=== PATIENT | male | born 1985 | race Native Hawaiian/Other Pacific Islander ===

== ENCOUNTER 2016-06-18 13:39 | Inpatient (IN) | payer OTHER ==
[2016-06-18] MEDS ORDERED: ZEMURON IV ONE ×2 (13:51→20:09)
[2016-06-18] MEDS ORDERED: KETALAR IV ONE ×2 (13:52→15:00)
[2016-06-18] MEDS ORDERED: ACTIDOSE SORBITOL ONE (13:58)
[2016-06-18] MEDS ORDERED: ACTIDOSE-AQUA ONE (13:58)
[2016-06-18] MEDS ORDERED: NACL 0.9% 1000 ML 1,000 ML IV ONE ×2 (14:42→18:50)
[2016-06-18] MEDS ORDERED: SUBLIMAZE IV ONE (14:42)
[2016-06-18 14:43] LABS: Urine Drugs of Abuse Note Disclamer
[2016-06-18 14:52] LABS: Basophils % (Auto) 0.8 % (0.0-1.8); Eosinophils % (Auto) 4.9 % (0.0-4.3); Hemoglobin 16.1 gm/dl (11.8-15.2); Mean Corpuscular HGB Conc 33 % (32-34); Mean Corpuscular Hemoglobin 29 pg (28-32); Mean Corpuscular Volume 89 fl (84-94); Red Blood Count 5.52 M/mm3 (3.65-5.03); Red Cell Distribution Width 14.5 % (13.2-15.2); White Blood Count 12.9 K/mm3 (4.5-11.0)
--- NOTE | 2016-06-18 14:53 | Emergency Department Report ---
ED General Adult HPI - General Chief complaint: Overdose Stated complaint: OVERDOSE Time Seen by Provider: 06/18/16 14:08 Source: EMS (verbal report received from EMS.ems notes not available at time of chart dictation), RN notes reviewed Mode of arrival: Stretcher Limitations: Altered Mental Status - History of Present Illness Initial comments: This is a 31-year-old male. He is previously unknown to me. He is brought to the hospital by EMS after overdose. As per verbal report from EMS, patient was found in the hallway, complaining of overdose on clonidine and Valium, possibly citalopram. EMS verbally reports that overdose happened approximately 45 minutes prior to arrival. The patient endorses suicidality. Initially upon arrival, the patient was somnolent, gurgling, did not appear to be protecting his airway. The patient was preoxygenated with 100% oxygen, received apical oxygenation, induced with ketamine, paralyzed with rocuronium , and intubated by myself with 1 attempt with no obvious complications or difficulty. An emergent orogastric tube was then placed by the nursing staff, and he was given 100 g of charcoal with sorbitol. Given concern for hemodynamic instability in the context of clonidine overdose, an emergent right-sided central line is placed by myself using ultrasound guidance with no complications, with one attempt. Nursing staff contact the [facility], who made the following recommendations: Rashard from posoin control states The medical telephone order dispatcher unaware if Left bundle branch block on EKG is preexisting and that a QRS of 132 is of concern. Per Rashard he states the medical telephone order dispatcher recommends to give pt 1 mEq/kg of bicarb IV Push to alkalinize. If the QRS of 132 is related to the Citalopram the QRS will narrow on monitor. If the QRS narrows, repeat bicarb 1 mEq/kg in 5-10 minutes. If QRS does not narrow, don't repeat bicarb dose. He states QT/QTc of 418/451 ms is not of concern unless greater than 500 ms. Pt needs serial EKGs every 2 hours. Assess for serotonin syndrome symptoms such as muscle rigidity and fever.. Pt needs baseline CPK to assess for rhabdomyolysis. Check hepatic and renal function baseline. If change in pt condition, repeat CPK, hepatic and renal function every 6-12 hours. Monitor electrolytes if EKG changes occur. Check pt tylenol level at baseline and 4 hours from baseline check. Read back and verified. Initialized on 06/18/16 15:10 - END OF NOTE -: unknown Severity scale (0 -10): 0 Consistency: other (per hpi) Improves with: other (per hpi) Worsens with: other (per hpi) Associated Symptoms: other (per hpi) - Related Data Allergies Allergy/AdvReac Type Severity Reaction Status Date / Time NSAIDS (Non-Steroidal AdvReac Unknown Verified 06/18/16 19:28 Anti-Inflamma ED Review of Systems ROS: Stated complaint: OVERDOSE Other details as noted in HPI Comment: Unobtainable due to pts medical conditions ED Past Medical Hx - Past Medical History Hx Psychiatric Treatment: Yes Additional medical history: previous suicide attempts - Social History Smoking Status: Never Smoker Substance Use Type: Alcohol ED Physical Exam - General Limitations: Altered Mental Status General appearance: obtunded, obese - ENT ENT exam: Present: normal exam, normal orophraynx - Neck Neck exam: Present: normal inspection. Absent: tenderness, meningismus - Respiratory Respiratory exam: Present: normal lung sounds bilaterally. Absent: respiratory distress, wheezes, rales, stridor - Cardiovascular Cardiovascular Exam: Present: regular rate, normal rhythm, normal heart sounds. Absent: bradycardia, tachycardia, irregular rhythm, systolic murmur, diastolic murmur, rubs, gallop - GI/Abdominal GI/Abdominal exam: Present: soft, normal bowel sounds. Absent: distended, tenderness, guarding, rebound, rigid, pulsatile mass - exam: Present: normal inspection - Extremities Exam Extremities exam: Present: normal inspection - Back Exam Back exam: Present: normal inspection - Neurological Exam Neurological exam: Present: altered - Psychiatric Psychiatric exam: Present: flat affect, suicidal ideation ED Course Vital Signs 06/18/16 06/18/16 06/18/16 13:50 13:54 14:42 Temperature Pulse Rate 78 69 Respiratory 24 16 Rate Blood Pressure 132/56 Blood Pressure 133/84 [Right] O2 Sat by Pulse 83 L 97 Oximetry 06/18/16 06/18/16 06/18/16 15:02 15:18 15:30 Temperature Pulse Rate 70 69 71 Respiratory 17 Rate Blood Pressure 117/74 Blood Pressure 113/74 [Right] O2 Sat by Pulse 100 98 98 Oximetry 06/18/16 06/18/16 06/18/16 15:31 15:45 16:00 Temperature 97.5 F L Pulse Rate 74 63 Respiratory 20 16 Rate Blood Pressure Blood Pressure 113/71 120/73 [Right] O2 Sat by Pulse 96 100 Oximetry 06/18/16 06/18/16 06/18/16 16:25 16:47 17:02 Temperature 100.5 F H Pulse Rate 67 Respiratory 16 Rate Blood Pressure Blood Pressure 113/68 [Right] O2 Sat by Pulse 98 60 L Oximetry 06/18/16 06/18/16 18:13 19:22 Temperature Pulse Rate 64 64 Respiratory 16 16 Rate Blood Pressure Blood Pressure 110/66 124/74 [Right] O2 Sat by Pulse 100 100 Oximetry - Reevaluation(s) Reevaluation #1: 06/18/16 16:19 Differential diagnosis: Respiratory failure, intracranial injury, cervical spine injury, suicidality, polysubstance overdose, mood disorder Assessment and plan: 31-year-old male with respiratory failure secondary to toxic encephalopathy, secondary to overdose, secondary to suicidality requiring intubation. He is placed on a 1013. An emergent central line is placed in the event that the patient develops hemodynamic instability from a severe clonidine overdose. Currently, the patient is not hemodynamically unstable. The toxicology recommendations are appreciated, repeat EKG is ordered after 150 mEq of sodium bicarbonate administration. Repeat Tylenol level was ordered. Case is discussed with the Hospital physician, Dr. Brannon, who accepts patient to his service. Case is discussed with the critical care physician, Dr. Ruiz, who authorizes placements to the ICU. Reevaluation #2: 06/18/16 17:08 CT scan of the brain and cervical spine negative. Rectal temperature 100.5. CK within normal limits. Compartments are soft. No clonus. Does not appear to be consistent with serotonin syndrome or NMS. I will rediscuss with [facility]. We will initiate cooling measures including ice packs to the groin and axilla. Acetaminophen will be held at this time. Given fever, altered mental status, we'll perform spinal tap to exclude meningitis. Reevaluation #3: 06/18/16 18:49 inr 1.53, will hold off on spinal tap for now will continue empiric antibiotic therapy case is rediscussed with Cristi at the [facility] [place] [facility]. Patient does not have clonus, hyperreflexia does not have elevated CPK, [facility] does not recommend initiation of bromocriptine at this time. They recommend symptomatic and supportive care, external cooling measures. 06/18/16 18:53 - Central Line Placement Right IJ Consent Obtained: emergent situation Time Out Performed: Yes Patient Placed on Monitor/Pulse Ox: Yes MD Prep: mask, gown, gloves Central Line Prep: Chlorhexidine scrub, sterile drapes applied Ultrasound Used for Placement: Yes Central Line Lumen Inserted: triple Bloods Obtained for Lab: Yes Central Line Position: good blood return Dressing Applied: Tegaderm Post Procedure X-Ray: tip of catheter in good p Patient Tolerated Procedure: well Complications: none - Intubation Time Out Performed: No (emergent) Sedative: Ketamine Paralytic: Rocuronium Laryngoscope: Amina Size: 4 ET Tube Size: 7.5 Tube Secured Location: teeth Tube Placement Confirmation: visualized tube passing t Patient Tolerated Procedure: well Intubation Complications: none Additional Comments: received received passive Oxygenation, [id number] ventilation, intubated without difficulty ED Medical Decision Making - Lab Data Result diagrams: 06/21/16 06:53 06/21/16 06:53 Vital Signs 06/18/16 06/18/16 06/18/16 13:50 13:54 14:42 Temperature Pulse Rate 78 69 Respiratory 24 16 Rate Blood Pressure 132/56 Blood Pressure 133/84 [Right] O2 Sat by Pulse 83 L 97 Oximetry 06/18/16 06/18/16 06/18/16 15:02 15:18 15:31 Temperature Pulse Rate 70 69 74 Respiratory 17 20 Rate Blood Pressure Blood Pressure 113/74 113/71 [Right] O2 Sat by Pulse 100 98 96 Oximetry 06/18/16 15:45 Temperature 97.5 F L Pulse Rate Respiratory Rate Blood Pressure Blood Pressure [Right] O2 Sat by Pulse Oximetry Labs 06/18/16 06/18/16 06/18/16 14:05 14:05 14:05 WBC 12.9 H RBC 5.52 H Hgb 16.1 H Hct 49.0 H MCV 89 MCH 29 MCHC 33 RDW 14.5 Plt Count 246 Lymph % (Auto) 20.5 Kerr % (Auto) 7.8 H Eos % (Auto) 4.9 H Baso % (Auto) 0.8 Lymph # 2.6 Kerr # 1.0 H Eos # 0.6 H Baso # 0.1 Seg Neutrophils % 66.0 Seg Neutrophils # 8.5 H POC ABG pH POC ABG pCO2 POC ABG pO2 POC ABG HCO3 POC ABG Total CO2 POC ABG O2 Sat POC ABG Base Excess FiO2 Sodium Potassium Chloride Carbon Dioxide Anion Gap BUN Creatinine Estimated GFR BUN/Creatinine Ratio Glucose Lactic Acid Calcium Magnesium Total Bilirubin AST ALT Alkaline Phosphatase Total Creatine Kinase Total Protein Albumin Albumin/Globulin Ratio TSH Urine Color Yellow Urine Turbidity Clear Urine pH 6.0 Ur Specific [place] 1.010 Urine Protein <15 mg/dl Urine Glucose (UA) Neg Urine Ketones Neg Urine Blood Neg Urine Nitrite Neg Urine Bilirubin Neg Urine Urobilinogen < 2.0 Ur Leukocyte Esterase Neg Urine WBC (Auto) 4.0 Urine RBC (Auto) 1.0 Urine Bacteria (Auto) 1+ Urine Mucus Few Salicylates Urine Opiates Screen Presumptive negative Urine Methadone Screen Presumptive negative Acetaminophen Ur Barbiturates Screen Presumptive negative Ur Phencyclidine Scrn Presumptive negative Ur Amphetamines Screen Presumptive negative U Benzodiazepines Scrn Presumptive positive Urine Cocaine Screen Presumptive negative U Marijuana (THC) Screen Presumptive negative Drugs of Abuse Note Disclamer Plasma/Serum Alcohol 06/18/16 06/18/16 06/18/16 14:05 14:05 14:05 WBC RBC Hgb Hct MCV MCH MCHC RDW Plt Count Lymph % (Auto) Kerr % (Auto) Eos % (Auto) Baso % (Auto) Lymph # Kerr # Eos # Baso # Seg Neutrophils % Seg Neutrophils # POC ABG pH POC ABG pCO2 POC ABG pO2 POC ABG HCO3 POC ABG Total CO2 POC ABG O2 Sat POC ABG Base Excess FiO2 Sodium 141 Potassium 3.1 L Chloride 104.7 Carbon Dioxide 17 L Anion Gap 22 BUN 4 L Creatinine 0.7 L Estimated GFR > 60 BUN/Creatinine Ratio 5.71 Glucose 140 H Lactic Acid 3.6 H* Calcium 7.8 L Magnesium 1.5 L Total Bilirubin 0.4 AST 62 H ALT 91 H Alkaline Phosphatase 115 Total Creatine Kinase Total Protein 5.9 L Albumin 3.2 L Albumin/Globulin Ratio 1.2 TSH 3.680 Urine Color Urine Turbidity Urine pH Ur Specific [place] Urine Protein Urine Glucose (UA) Urine Ketones Urine Blood Urine Nitrite Urine Bilirubin Urine Urobilinogen Ur Leukocyte Esterase Urine WBC (Auto) Urine RBC (Auto) Urine Bacteria (Auto) Urine Mucus Salicylates Urine Opiates Screen Urine Methadone Screen Acetaminophen Ur Barbiturates Screen Ur Phencyclidine Scrn Ur Amphetamines Screen U Benzodiazepines Scrn Urine Cocaine Screen U Marijuana (THC) Screen Drugs of Abuse Note Plasma/Serum Alcohol 06/18/16 06/18/16 06/18/16 14:05 14:05 14:05 WBC RBC Hgb Hct MCV MCH MCHC RDW Plt Count Lymph % (Auto) Kerr % (Auto) Eos % (Auto) Baso % (Auto) Lymph # Kerr # Eos # Baso # Seg Neutrophils % Seg Neutrophils # POC ABG pH POC ABG pCO2 POC ABG pO2 POC ABG HCO3 POC ABG Total CO2 POC ABG O2 Sat POC ABG Base Excess FiO2 Sodium Potassium Chloride Carbon Dioxide Anion Gap BUN Creatinine Estimated GFR BUN/Creatinine Ratio Glucose Lactic Acid Calcium Magnesium Total Bilirubin AST ALT Alkaline Phosphatase Total Creatine Kinase Total Protein Albumin Albumin/Globulin Ratio TSH Urine Color Urine Turbidity Urine pH Ur Specific [place] Urine Protein Urine Glucose (UA) Urine Ketones Urine Blood Urine Nitrite Urine Bilirubin Urine Urobilinogen Ur Leukocyte Esterase Urine WBC (Auto) Urine RBC (Auto) Urine Bacteria (Auto) Urine Mucus Salicylates < 0.3 L Urine Opiates Screen Urine Methadone Screen Acetaminophen < 15.0 Ur Barbiturates Screen Ur Phencyclidine Scrn Ur Amphetamines Screen U Benzodiazepines Scrn Urine Cocaine Screen U Marijuana (THC) Screen Drugs of Abuse Note Plasma/Serum Alcohol 0.13 H 06/18/16 06/18/16 14:05 15:18 WBC RBC Hgb Hct MCV MCH MCHC RDW Plt Count Lymph % (Auto) Kerr % (Auto) Eos % (Auto) Baso % (Auto) Lymph # Kerr # Eos # Baso # Seg Neutrophils % Seg Neutrophils # POC ABG pH 7.320 L POC ABG pCO2 47.9 H POC ABG pO2 149 H POC ABG HCO3 24.7 POC ABG Total CO2 26 POC ABG O2 Sat 99 POC ABG Base Excess -1 FiO2 60 Sodium Potassium Chloride Carbon Dioxide Anion Gap BUN Creatinine Estimated GFR BUN/Creatinine Ratio Glucose Lactic Acid Calcium Magnesium Total Bilirubin AST ALT Alkaline Phosphatase Total Creatine Kinase 25 L Total Protein Albumin Albumin/Globulin Ratio TSH Urine Color Urine Turbidity Urine pH Ur Specific [place] Urine Protein Urine Glucose (UA) Urine Ketones Urine Blood Urine Nitrite Urine Bilirubin Urine Urobilinogen Ur Leukocyte Esterase Urine WBC (Auto) Urine RBC (Auto) Urine Bacteria (Auto) Urine Mucus Salicylates Urine Opiates Screen Urine Methadone Screen Acetaminophen Ur Barbiturates Screen Ur Phencyclidine Scrn Ur Amphetamines Screen U Benzodiazepines Scrn Urine Cocaine Screen U Marijuana (THC) Screen Drugs of Abuse Note Plasma/Serum Alcohol - EKG Data When compared to previous EKG there are: previous EKG unavailable 06/18/16 16:21 normal sinus, 70 bpm, left axis deviation, left ventricular hypertrophy, QTC 451 ms, left bundle branch block, not morphologically consistent with STEMI, there is no prior EKG available for comparison. - Radiology Data Radiology results: report reviewed, image reviewed interpreted by me: Initial x-ray demonstrates bilateral lung atelectasis, endotracheal tube noted to be superior to the bilateral clavicles, the respiratory therapist was contacted and requested to advance endotracheal tube. Right-sided central line is noted, no obvious pneumothorax, appears to be in appropriate position. repeat ekg noted normal sinus 64 bpm, left axis Critical Care Time: Yes Critical care time in (mins) excluding proc time.: 60 Critical care attestation.: If time is entered above; I have spent that time in minutes in the direct care of this critically ill patient, excluding procedure time. Critical Care Time: Critical care time includes multiple bedside evaluations, interpretation of laboratory studies, radiology studies, time spent managing critically ill patient with respiratory failure secondary to overdose. This does not include procedure time. ED Disposition Clinical Impression: Suicidal ideation Overdose Qualifiers: Encounter type: initial encounter Respiratory failure Qualifiers: Chronicity: acute Respiratory failure complication: hypoxia Qualified Code(s): J96.01 - Acute respiratory failure with hypoxia Disposition: OP ADMITTED IP TO THIS HOSP Is pt being admited?: Yes Condition: Critical
[2016-06-18 14:56] LABS: Platelet Count 246 K/mm3 (140-440)
[2016-06-18 15:07] LABS: Alanine Aminotransferase 91 units/L (7-56); Albumin 3.2 g/dL (3.9-5); Albumin/Globulin Ratio 1.2 %; Alkaline Phosphatase 115 units/L (35-129); Anion Gap 22 mmol/L; BUN/Creatinine Ratio 5.71; Bilirubin,Total 0.4 mg/dL (0.1-1.2); Blood Urea Nitrogen 4 mg/dL (9-20); Calcium 7.8 mg/dL (8.4-10.2); Carbon Dioxide 17 mmol/L (22-30); Chloride 104.7 mmol/L (98-107); Glucose 140 mg/dL (75-100); Magnesium 1.5 mg/dL (1.7-2.3); Potassium 3.1 mmol/L (3.6-5.0); Sodium 141 mmol/L (137-145); Total Protein 5.9 g/dL (6.3-8.2)
[2016-06-18 15:11] LABS: Bacteria,Urine 1+ /HPF (Negative); Bilirubin,Urine NEG (Negative); Blood,Urine NEG (Negative); Ketones,Urine NEG (Negative); Leukocyte Esterase,Urine NEG (Negative); Mucus,Urine FEW /HPF; Nitrite,Urine NEG (Negative); Protein,Urine <15 mg/dL mg/dL (Negative); Urobilinogen,Urine < 2.0 mg/dL (<2.0)
[2016-06-18 15:37] LABS: ISTAT Base Excess -1; ISTAT HCO3 24.7; ISTAT PCO2 47.9 (35-45); ISTAT PO2 149 (80-105); ISTAT SO2 99; ISTAT TCO2 26
[2016-06-18] MEDS ORDERED: MAGNESIUM SULFATE 2GM/50ML 2 GM/50 ML BAG IV ONE (15:40)
[2016-06-18] MEDS ORDERED: VALIUM IV ONE (15:59)
[2016-06-18] MEDS: KCL 20MEQ/100ML 20 MEQ/100 ML BAG IV SCH ×2 (16:40→18:01)
--- NOTE | 2016-06-18 16:49 | Cat Scan Report ---
FINAL REPORT PROCEDURE: CT HEAD/BRAIN WO CON TECHNIQUE: Computerized tomography of the head was performed without contrast material. HISTORY: ams COMPARISON: No prior studies are available for comparison. FINDINGS: Brain: Brain density appears normal. No evidence of intracranial hemorrhage. No parenchymal hemorrhage, mass lesions or mass effect are seen. No abnormal extraxial fluid collects or masses are seen. Ventricles: Ventricles are normal size and are midline. Bone Windows: No evidence of skull fracture. Paranasal sinuses: There is mild mucosal thickening and a small amount of fluid in both maxillary sinuses. Small nodular density is seen medially in the right frontal sinus measuring 6.3 millimeters. Mastoid air cells: Clear Endotracheal tube and NG tube are partially visualized IMPRESSION: Negative unenhanced CT of the brain. Mild paranasal sinus disease as described. Endotracheal tube and NG tube in place.
[2016-06-18] MEDS ORDERED: SODIUM BICARBONATE IV ONE ×3 (16:52→17:00)
[2016-06-18] MEDS ORDERED: VASELINE LIP THERAPY TP PRN (16:52)
[2016-06-18] MEDS ORDERED: ARTIFICIAL TEARS OPHTH OINT OU PRN (16:52)
--- NOTE | 2016-06-18 16:58 | Cat Scan Report ---
FINAL REPORT PROCEDURE: CT cervical spine without contrast. TECHNIQUE: Computerized tomography of the cervical spine was performed from the skull base to T1 without contrast material. HISTORY: Altered mental status, possible neck injury. COMPARISON: No prior studies are available for comparison. FINDINGS: The cervical vertebrae have normal height and alignment. There are no fractures. There is no subluxation. The disc spaces appear adequate. The spinal canal is widely patent. The facet joints appear satisfactory. The neural foramina are widely patent. An endotracheal tube and orogastric tube are noted. The endotracheal tube just passes through the vocal cords. It should be advanced for more optimal positioning. IMPRESSION: No evidence of acute cervical spine injury. High positioning of the endotracheal tube.
--- NOTE | 2016-06-18 16:59 | XRay Report ---
FINAL REPORT PROCEDURE: XR CHEST 1V AP TECHNIQUE: Chest radiograph anteroposterior view. CPT 80204 HISTORY: ett placement COMPARISON: No prior studies are available for comparison. FINDINGS: NG tube is seen directed into the stomach. The distal end of the tube is not included on the film. Endotracheal tube visualized. The tip lies 5.5 centimeters superior to the thoracic inlet and needs to be reposition. Right jugular central venous line in place. The tip projects in the mid SVC. No evidence of pneumothorax. Patchy alveolar densities are present in both bases suggesting atelectasis. The heart is magnified due to projection, probably normal size.. Pulmonary vasculature not significantly distended. No pulmonary edema or pleural effusions are seen. No acute bony abnormalities are identified. IMPRESSION: Endotracheal tube lies 5.5 centimeters above the thoracic inlet and needs to be significantly reposition. NG tube and central venous line in place as described. Bibasilar atelectasis suspected. Lungs are hypoventilated..
[2016-06-18] MEDS ORDERED: fentaNYL DRIP Premix 2,000 MCG/100 ML BAG IV SCH (17:00)
[2016-06-18] MEDS ORDERED: ROCEPHIN/NS 2 GM/100 ML 2 GM/100 ML BAG IV ONE (17:05)
[2016-06-18] MEDS ORDERED: DECADRON IV STA (17:05)
[2016-06-18] MEDS ORDERED: VANCOMYCIN VIAL IV ONE (17:07)
[2016-06-18] MEDS ORDERED: XYLOCAINE 2%/ EPI 1:200,000 INFILTRATI ONE (17:38)
[2016-06-18] MEDS: SUBLIMAZE 2,000 MCG in NACL 0.9% 60 ML IV SCH ×2 (17:54→22:52)
[2016-06-18] MEDS ORDERED: VANCOMYCIN PHARMACY TO DOSE IV SCH (18:00)
[2016-06-18 18:06] LABS: INR 1.53 (0.87-1.13); Partial Thromboplastin Time 29.9 Sec. (24.2-36.6)
[2016-06-18] MEDS ORDERED: DECADRON ONE (18:06)
[2016-06-18 19:25] LABS: BUN/Creatinine Ratio 8.33; Blood Urea Nitrogen 5 mg/dL (9-20); Calcium 7.2 mg/dL (8.4-10.2); Carbon Dioxide 26 mmol/L (22-30); Chloride 104.9 mmol/L (98-107); Glucose 164 mg/dL (75-100); Sodium 144 mmol/L (137-145)
[2016-06-18 19:31] LABS: Anion Gap 17 mmol/L
[2016-06-18] MEDS ORDERED: ACTIDOSE-AQUA PO ONE (19:59)
[2016-06-18] MEDS ORDERED: KETALAR ONE (20:09)
[2016-06-18] MEDS ORDERED: MILK OF MAGNESIA PO PRN (21:34)
[2016-06-18] MEDS ORDERED: DULCOLAX PR PRN (21:34)
[2016-06-18] MEDS ORDERED: ZOFRAN IV PRN (21:34)
[2016-06-18] MEDS ORDERED: PERCOCET 5/325 PO PRN (21:34)
--- NOTE | 2016-06-18 21:34 | History and Physical Report ---
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 History of present illness: This is a 31-year-old male brought to the hospital by EMS after overdose. As per verbal report from EMS, patient was found in the hallway, complaining of overdose on clonidine and Valium, possibly citalopram. EMS verbally reports that overdose happened approximately 45 minutes prior to arrival. The patient endorses suicidality. Initially upon arrival, the patient was somnolent, gurgling, did not appear to be protecting his airway. The patient was preoxygenated with 100% oxygen, received apical oxygenation, induced with ketamine, paralyzed with rocuronium and intubated by Dr Arteaga with 1 attempt with no obvious complications or difficulty. An emergent orogastric tube was then placed by the nursing staff, and he was given 100 g of charcoal with sorbitol. Given concern for hemodynamic instability in the context of clonidine overdose, an emergent right-sided central line wAS placed using ultrasound guidance with no complications, with one attempt. Nursing staff contact the [place] [facility], who made the following recommendations: Rashard from posoin control states The medical control officer manager unaware if Left bundle branch block on EKG is preexisting and that a QRS of 132 is of concern. Per Rashard he states the medical control officer manager recommends to give pt 1 mEq/kg of bicarb IV Push to alkalinize. If the QRS of 132 is related to the Citalopram the QRS will narrow on monitor. If the QRS narrows, repeat bicarb 1 mEq/kg in 5-10 minutes. If QRS does not narrow, don't repeat bicarb dose. He states QT/QTc of 418/451 ms is not of concern unless greater than 500 ms. Pt needs serial EKGs every 2 hours. Assess for serotonin syndrome symptoms such as muscle rigidity and fever.. Pt needs baseline CPK to assess for rhabdomyolysis. Check hepatic and renal function baseline. If change in pt condition, repeat CPK, hepatic and renal function every 6-12 hours. Monitor electrolytes if EKG changes occur. Check pt tylenol level at baseline and 4 hours from baseline check. Read back and verified. Initialized on 06/18/16 15:10 - END OF NOTE Past History Past Medical History: hypertension, other (dEPRESSION) Past Surgical History: No surgical history Family history: hypertension Medications and Allergies Allergies Allergy/AdvReac Type Severity Reaction Status Date / Time NSAIDS (Non-Steroidal AdvReac Unknown Verified 06/18/16 19:28 Anti-Inflamma Active Meds: Active Medications Fentanyl 2,000 mcg/ Sodium (Chloride) 100 mls @ 7.25 mls/hr IV TITR ROBBY; 1 MCG/ KG/HR PRN Reason: Protocol Last Admin: 06/18/16 17:54 Dose: 7.25 mls/hr Vancomycin HCl 2,000 mg/ (Sodium Chloride) 500 mls @ 333.333 mls/hr IV Q8H ROBBY Vancomycin HCl (Vancomycin Pharmacy To Dose) 1 each IV PKCONSULT ROBBY PRN Reason: Protocol Review of Systems ROS unobtainable: due to endotracheal tube Constitutional: weight loss, weight gain Exam - Physical Exam Narrative exam: Patient intubated - Constitutional Vitals: Temp Pulse Resp BP Pulse Ox 100.5 F H 64 16 108/75 98 06/18/16 17:02 06/18/16 20:27 06/18/16 19:22 06/18/16 20:27 06/18/16 20:27 General appearance: Present: mild distress, well-nourished - EENT Eyes: Present: PERRL ENT: clear oral mucosa - Neck Neck: Present: supple, normal ROM - Respiratory Respiratory effort: normal Respiratory: bilateral: CTA - Cardiovascular Heart rate: 80 Rhythm: regular Heart Sounds: Present: S1 & S2. Absent: rub, click - Extremities Extremities: no ischemia, pulses symmetrical, No edema Peripheral Pulses: within normal limits - Abdominal General gastrointestinal: Present: soft, non-tender, non-distended, normal bowel sounds Male genitourinary: Present: normal - Rectal Rectal Exam: deferred - Integumentary Integumentary: Present: clear, warm, dry - Musculoskeletal Musculoskeletal: gait normal, strength equal bilaterally - Psychiatric Psychiatric: other (Sedated) - Neurologic Neurologic: moves all extremities, other (Sedated) Results - Labs CBC & Chem 7: 06/19/16 03:40 06/19/16 03:40 Labs: Laboratory Last Values WBC 12.9 K/mm3 (4.5-11.0) H 06/18/16 14:05 RBC 5.52 M/mm3 (3.65-5.03) H 06/18/16 14:05 Hgb 16.1 gm/dl (11.8-15.2) H 06/18/16 14:05 Hct 49.0 % (35.5-45.6) H 06/18/16 14:05 MCV 89 fl (84-94) 06/18/16 14:05 MCH 29 pg (28-32) 06/18/16 14:05 MCHC 33 % (32-34) 06/18/16 14:05 RDW 14.5 % (13.2-15.2) 06/18/16 14:05 Plt Count 246 K/mm3 (140-440) 06/18/16 14:05 Lymph % (Auto) 20.5 % (13.4-35.0) 06/18/16 14:05 [place] % (Auto) 7.8 % (0.0-7.3) H 06/18/16 14:05 Eos % (Auto) 4.9 % (0.0-4.3) H 06/18/16 14:05 Baso % (Auto) 0.8 % (0.0-1.8) 06/18/16 14:05 Lymph # 2.6 K/mm3 (1.2-5.4) 06/18/16 14:05 [place] # 1.0 K/mm3 (0.0-0.8) H 06/18/16 14:05 Eos # 0.6 K/mm3 (0.0-0.4) H 06/18/16 14:05 Baso # 0.1 K/mm3 (0.0-0.1) 06/18/16 14:05 Seg Neutrophils % 66.0 % (40.0-70.0) 06/18/16 14:05 Seg Neutrophils # 8.5 K/mm3 (1.8-7.7) H 06/18/16 14:05 PT 18.4 Sec. (12.2-14.9) H 06/18/16 17:05 INR 1.53 (0.87-1.13) H 06/18/16 17:05 APTT 29.9 Sec. (24.2-36.6) 06/18/16 17:05 POC ABG pH 7.320 (7.35-7.45) L 06/18/16 15:18 POC ABG pCO2 47.9 (35-45) H 06/18/16 15:18 POC ABG pO2 149 (80-105) H 06/18/16 15:18 POC ABG HCO3 24.7 06/18/16 15:18 POC ABG Total CO2 26 06/18/16 15:18 POC ABG O2 Sat 99 06/18/16 15:18 POC ABG Base Excess -1 06/18/16 15:18 FiO2 60 % 06/18/16 15:18 Sodium 144 mmol/L (137-145) 06/18/16 18:58 Potassium 4.0 mmol/L (3.6-5.0) D 06/18/16 18:58 Chloride 104.9 mmol/L (98-107) 06/18/16 18:58 Carbon Dioxide 26 mmol/L (22-30) D 06/18/16 18:58 Anion Gap 17 mmol/L 06/18/16 18:58 BUN 5 mg/dL (9-20) L 06/18/16 18:58 Creatinine 0.6 mg/dL (0.8-1.5) L 06/18/16 18:58 Estimated GFR > 60 ml/min 06/18/16 18:58 BUN/Creatinine Ratio 8.33 % 06/18/16 18:58 Glucose 164 mg/dL (75-100) H 06/18/16 18:58 Lactic Acid 2.9 mmol/L (0.7-2.0) H* 06/18/16 16:56 Calcium 7.2 mg/dL (8.4-10.2) L 06/18/16 18:58 Magnesium 1.5 mg/dL (1.7-2.3) L 06/18/16 14:05 Total Bilirubin 0.4 mg/dL (0.1-1.2) 06/18/16 14:05 AST 62 units/L (5-40) H 06/18/16 14:05 ALT 91 units/L (7-56) H 06/18/16 14:05 Alkaline Phosphatase 115 units/L (35-129) 06/18/16 14:05 Total Creatine Kinase 25 units/L (55-170) L 06/18/16 14:05 Total Protein 5.9 g/dL (6.3-8.2) L 06/18/16 14:05 Albumin 3.2 g/dL (3.9-5) L 06/18/16 14:05 Albumin/Globulin Ratio 1.2 % 06/18/16 14:05 TSH 3.680 mlU/mL (0.270-4.200) 06/18/16 14:05 Urine Color Yellow (Yellow) 06/18/16 14:05 Urine Turbidity Clear (Clear) 06/18/16 14:05 Urine pH 6.0 (5.0-7.0) 06/18/16 14:05 Ur Specific [place] 1.010 (1.003-1.030) 06/18/16 14:05 Urine Protein <15 mg/dl mg/dL (Negative) 06/18/16 14:05 Urine Glucose (UA) Neg mg/dL (Negative) 06/18/16 14:05 Urine Ketones Neg mg/dL (Negative) 06/18/16 14:05 Urine Blood Neg (Negative) 06/18/16 14:05 Urine Nitrite Neg (Negative) 06/18/16 14:05 Urine Bilirubin Neg (Negative) 06/18/16 14:05 Urine Urobilinogen < 2.0 mg/dL (<2.0) 06/18/16 14:05 Ur Leukocyte Esterase Neg (Negative) 06/18/16 14:05 Urine WBC (Auto) 4.0 /HPF (0.0-6.0) 06/18/16 14:05 Urine RBC (Auto) 1.0 /HPF (0.0-6.0) 06/18/16 14:05 Urine Bacteria (Auto) 1+ /HPF (Negative) 06/18/16 14:05 Urine Mucus Few /HPF 06/18/16 14:05 Salicylates < 0.3 mg/dL (2.8-20.0) L 06/18/16 14:05 Urine Opiates Screen Presumptive negative 06/18/16 14:05 Urine Methadone Screen Presumptive negative 06/18/16 14:05 Acetaminophen < 15.0 ug/mL (10.0-30.0) 06/18/16 16:56 Ur Barbiturates Screen Presumptive negative 06/18/16 14:05 Ur Phencyclidine Scrn Presumptive negative 06/18/16 14:05 Ur Amphetamines Screen Presumptive negative 06/18/16 14:05 U Benzodiazepines Scrn Presumptive positive 06/18/16 14:05 Urine Cocaine Screen Presumptive negative 06/18/16 14:05 U Marijuana (THC) Screen Presumptive negative 06/18/16 14:05 Drugs of Abuse Note Disclamer 06/18/16 14:05 Plasma/Serum Alcohol 0.13 gm% (0-0.07) H 06/18/16 14:05 - Imaging and Cardiology EKG: report reviewed (C Spine CT neg) Chest x-ray: report reviewed CT Scan - head: report reviewed (NAF except sinus disease) Assessment and Plan Advance Directives: Yes (Full code) VTE prophylaxis?: Chemical - Patient Problems (1) Overdose Current Visit: Yes Status: Acute Qualifiers: Encounter type: initial encounter Injury intent: I Plan to address problem: Iv fluids and BP support if necessary (2) Respiratory failure Current Visit: Yes Status: Acute Qualifiers: Chronicity: acute Respiratory failure complication: hypoxia Qualified Code(s): J96.01 - Acute respiratory failure with hypoxia Plan to address problem: Cont Vent support for now (3) Hypokalemia Current Visit: Yes Status: Acute Plan to address problem: Supplemented (4) Suicidal overdose Current Visit: Yes Status: Acute Qualifiers: Encounter type: initial encounter Qualified Code(s): T50.902A - Poisoning by unspecified drugs, medicaments and biological substances, intentional self- harm, initial encounter Plan to address problem: consult requested (5) DVT prophylaxis Current Visit: Yes Status: Acute Plan to address problem: on lovenox Critical care statement
[2016-06-18] MEDS: D5NS 1,000 ML IV SCH (22:30)
[2016-06-18] MEDS: VANCOMYCIN VIAL 2,000 MG in NACL 0.9% 500 ML 500 ML IV SCH (22:54)
[2016-06-18] MEDS: KCL 10MEQ/100ML 10 MEQ/100 ML BAG IV SCH ×2 (22:55→23:55)
[2016-06-19] MEDS: KCL 10MEQ/100ML 10 MEQ/100 ML BAG IV SCH ×2 (00:55→01:20)
[2016-06-19] MEDS: SUBLIMAZE 2,000 MCG in NACL 0.9% 60 ML IV SCH (03:51)
[2016-06-19] MEDS: VANCOMYCIN VIAL 2,000 MG in NACL 0.9% 500 ML 500 ML IV SCH (03:53)
[2016-06-19 04:13] LABS: ISTAT Base Excess 0; ISTAT HCO3 24.6; ISTAT PCO2 37.8 (35-45); ISTAT PH 7.422 (7.35-7.45); ISTAT PO2 110 (80-105); ISTAT SO2 98; ISTAT TCO2 26
[2016-06-19 04:38] LABS: Alanine Aminotransferase 72 units/L (7-56); Albumin 3.2 g/dL (3.9-5); Albumin/Globulin Ratio 1.3 %; Alkaline Phosphatase 114 units/L (35-129); Anion Gap 18 mmol/L; BUN/Creatinine Ratio 7.14; Bilirubin,Total 0.6 mg/dL (0.1-1.2); Blood Urea Nitrogen 5 mg/dL (9-20); Calcium 7.5 mg/dL (8.4-10.2); Carbon Dioxide 24 mmol/L (22-30); Chloride 105.6 mmol/L (98-107); Glucose 189 mg/dL (75-100); Potassium 4.4 mmol/L (3.6-5.0); Sodium 143 mmol/L (137-145); Total Protein 5.7 g/dL (6.3-8.2)
[2016-06-19 04:41] LABS: Hematocrit 45.4 % (35.5-45.6); Hemoglobin 14.9 gm/dl (11.8-15.2); Mean Corpuscular HGB Conc 33 % (32-34); Mean Corpuscular Hemoglobin 29 pg (28-32); Mean Corpuscular Volume 88 fl (84-94); Platelet Count 210 K/mm3 (140-440); Red Blood Count 5.14 M/mm3 (3.65-5.03); White Blood Count 11.6 K/mm3 (4.5-11.0)
[2016-06-19 07:24] LABS: Basophils % (Manual) 0 % (0.0-1.8); Blastocytes % (Manual) 0 %; Diff Status Complete; Eosinophils % (Manual) 0 % (0.0-4.3); RBC Morphology Normal
[2016-06-19] MEDS: TYLENOL PO PRN ×2 (07:44→12:24)
[2016-06-19] MEDS: PEPCID IV SCH ×2 (09:56→21:15)
[2016-06-19] MEDS ORDERED: fentaNYL DRIP Premix 2,000 MCG/100 ML BAG IV SCH (10:00)
[2016-06-19] MEDS: D5NS 1,000 ML IV SCH (10:03)
--- NOTE | 2016-06-19 11:26 | Progress Note ---
Assessment and Plan Assessment and plan: 1. Acute hypoxic respiratory failure. Etiology secondary to toxic metabolic encephalopathy from drug overdose. Patient currently is intubated on a fentanyl drip. Patient has had hemodynamic stability and remained normotensive even though clonidine was reported as a drug use and overdose. Patient is to maintain on a ventilator until mental status improves and back to baseline. Pulmonary has been consult and will evaluate the patient. Waiting ventilator per protocol. 2. Toxic metabolic encephalopathy. Etiology secondary to drug overdose. Continue supportive care. 3. Drug overdose. Patient took clonidine, Valium and Celexa. Patient with hemodynamic stability and no evidence of hypotension. Patient had some widening of the QRS and received bicarbonate IV. Tracing appears stable on the monitor currently. Continue to observe on telemetry. Check EKG. Consider cardiology consultation. Hepatic and renal function appear to be stable. Continue to check CPK for rhabdomyolysis. No evidence of serotonin syndrome except for fever. No signs of muscle rigidity. 4. Suicide attempt. Patient has been placed on 1013. Patient will have psychiatric evaluation when more stable. 5. Fever. This may represent early signs of serotonin syndrome versus sepsis. No signs of any infectious process at present. Continue to monitor temperature curve. 6. Hypertension. Patient actually slightly hypotensive at present. History Interval history: This is a 31-year-old male. He is previously unknown to me. He is brought to the hospital by EMS after overdose. As per report from EMS, patient was found in the hallway, complaining of overdose on clonidine and Valium, possibly citalopram. EMS verbally reports that overdose happened approximately 45 minutes prior to arrival. The patient endorses suicidality. Patient is currently intubated and sedated. Mother is at the bedside. All questions answered. Hospitalist Physical - Constitutional Vitals: Temp Pulse Resp BP Pulse Ox 103.1 F H 55 L 16 114/71 97 06/19/16 08:00 06/19/16 11:00 06/19/16 11:00 06/19/16 11:00 06/19/16 11:00 General appearance: Present: no acute distress, well-nourished - EENT Eyes: Present: PERRL, EOM intact ENT: hearing intact, clear oral mucosa, dentition normal - Neck Neck: Present: supple, normal ROM - Respiratory Respiratory effort: normal Respiratory: bilateral: diminished, rhonchi - Cardiovascular Rhythm: regular Heart Sounds: Present: S1 & S2. Absent: gallop, rub - Extremities Extremities: no ischemia, No edema, Full ROM - Abdominal General gastrointestinal: soft, non-tender, non-distended, normal bowel sounds - Integumentary Integumentary: Present: clear, warm, dry - Neurologic Neurologic: CNII-XII intact, moves all extremities Results - Labs CBC & Chem 7: 06/19/16 03:40 06/19/16 03:40 Labs: Laboratory Last Values WBC 11.6 K/mm3 (4.5-11.0) H 06/19/16 03:40 RBC 5.14 M/mm3 (3.65-5.03) H 06/19/16 03:40 Hgb 14.9 gm/dl (11.8-15.2) 06/19/16 03:40 Hct 45.4 % (35.5-45.6) 06/19/16 03:40 MCV 88 fl (84-94) 06/19/16 03:40 MCH 29 pg (28-32) 06/19/16 03:40 MCHC 33 % (32-34) 06/19/16 03:40 RDW 14.0 % (13.2-15.2) 06/19/16 03:40 Plt Count 210 K/mm3 (140-440) 06/19/16 03:40 Lymph % (Auto) 20.5 % (13.4-35.0) 06/18/16 14:05 [place] % (Auto) 7.8 % (0.0-7.3) H 06/18/16 14:05 Eos % (Auto) 4.9 % (0.0-4.3) H 06/18/16 14:05 Baso % (Auto) 0.8 % (0.0-1.8) 06/18/16 14:05 Lymph # 2.6 K/mm3 (1.2-5.4) 06/18/16 14:05 [place] # 1.0 K/mm3 (0.0-0.8) H 06/18/16 14:05 Eos # 0.6 K/mm3 (0.0-0.4) H 06/18/16 14:05 Baso # 0.1 K/mm3 (0.0-0.1) 06/18/16 14:05 Add Manual Diff Complete 06/19/16 03:40 Total Counted 100 06/19/16 03:40 Seg Neutrophils % Lithostripper 06/19/16 03:40 Seg Neuts % (Manual) 92.0 % (40.0-70.0) H 06/19/16 03:40 Band Neutrophils % 0 % 06/19/16 03:40 Lymphocytes % (Manual) 5.0 % (13.4-35.0) L 06/19/16 03:40 Reactive Lymphs % (Man) 0 % 06/19/16 03:40 Monocytes % (Manual) 3.0 % (0.0-7.3) 06/19/16 03:40 Eosinophils % (Manual) 0 % (0.0-4.3) 06/19/16 03:40 Basophils % (Manual) 0 % (0.0-1.8) 06/19/16 03:40 Metamyelocytes % 0 % 06/19/16 03:40 Myelocytes % 0 % 06/19/16 03:40 Promyelocytes % 0 % 06/19/16 03:40 Blast Cells % 0 % 06/19/16 03:40 Nucleated RBC % Not Reportable 06/19/16 03:40 Seg Neutrophils # 8.5 K/mm3 (1.8-7.7) H 06/18/16 14:05 Seg Neutrophils # Man 10.7 K/mm3 (1.8-7.7) H 06/19/16 03:40 Band Neutrophils # 0.0 K/mm3 06/19/16 03:40 Lymphocytes # (Manual) 0.6 K/mm3 (1.2-5.4) L 06/19/16 03:40 Abs React Lymphs (Man) 0.0 K/mm3 06/19/16 03:40 Monocytes # (Manual) 0.3 K/mm3 (0.0-0.8) 06/19/16 03:40 Eosinophils # (Manual) 0.0 K/mm3 (0.0-0.4) 06/19/16 03:40 Basophils # (Manual) 0.0 K/mm3 (0.0-0.1) 06/19/16 03:40 Metamyelocytes # 0.0 K/mm3 06/19/16 03:40 Myelocytes # 0.0 K/mm3 06/19/16 03:40 Promyelocytes # 0.0 K/mm3 06/19/16 03:40 Blast Cells # 0.0 K/mm3 06/19/16 03:40 WBC Morphology Not Reportable 06/19/16 03:40 Hypersegmented Neuts Not Reportable 06/19/16 03:40 Hyposegmented Neuts Not Reportable 06/19/16 03:40 Hypogranular Neuts Not Reportable 06/19/16 03:40 Smudge Cells Not Reportable 06/19/16 03:40 Toxic Granulation Not Reportable 06/19/16 03:40 Toxic Vacuolation Not Reportable 06/19/16 03:40 Dohle Bodies Not Reportable 06/19/16 03:40 Pelger-Huet Anomaly Not Reportable 06/19/16 03:40 Sam Rods Not Reportable 06/19/16 03:40 Platelet Estimate Appears normal 06/19/16 03:40 Clumped Platelets Not Reportable 06/19/16 03:40 Plt Clumps, EDTA Not Reportable 06/19/16 03:40 Large Platelets Not Reportable 06/19/16 03:40 Giant Platelets Not Reportable 06/19/16 03:40 Platelet Satelliting Not Reportable 06/19/16 03:40 Plt Morphology Comment Not Reportable 06/19/16 03:40 RBC Morphology Normal 06/19/16 03:40 Dimorphic RBCs Not Reportable 06/19/16 03:40 Polychromasia Not Reportable 06/19/16 03:40 Hypochromasia Not Reportable 06/19/16 03:40 Poikilocytosis Not Reportable 06/19/16 03:40 Anisocytosis Not Reportable 06/19/16 03:40 Microcytosis Not Reportable 06/19/16 03:40 Macrocytosis Not Reportable 06/19/16 03:40 Spherocytes Not Reportable 06/19/16 03:40 Pappenheimer Bodies Not Reportable 06/19/16 03:40 Sickle Cells Not Reportable 06/19/16 03:40 Target Cells Not Reportable 06/19/16 03:40 Tear Drop Cells Not Reportable 06/19/16 03:40 Ovalocytes Not Reportable 06/19/16 03:40 Helmet Cells Not Reportable 06/19/16 03:40 [place] Bodies Not Reportable 06/19/16 03:40 [place] Rings Not Reportable 06/19/16 03:40 [place] Cells Not Reportable 06/19/16 03:40 Bite Cells Not Reportable 06/19/16 03:40 Crenated Cell Not Reportable 06/19/16 03:40 Elliptocytes Not Reportable 06/19/16 03:40 Acanthocytes (Spur) Not Reportable 06/19/16 03:40 Rouleaux Not Reportable 06/19/16 03:40 Hemoglobin C Crystals Not Reportable 06/19/16 03:40 Schistocytes Not Reportable 06/19/16 03:40 Malaria parasites Not Reportable 06/19/16 03:40 Jai Bodies Not Reportable 06/19/16 03:40 Hem Pathologist Commnt No 06/19/16 03:40 PT 18.4 Sec. (12.2-14.9) H 06/18/16 17:05 INR 1.53 (0.87-1.13) H 06/18/16 17:05 APTT 29.9 Sec. (24.2-36.6) 06/18/16 17:05 POC ABG pH 7.422 (7.35-7.45) 06/19/16 03:58 POC ABG pCO2 37.8 (35-45) 06/19/16 03:58 POC ABG pO2 110 (80-105) H 06/19/16 03:58 POC ABG HCO3 24.6 06/19/16 03:58 POC ABG Total CO2 26 06/19/16 03:58 POC ABG O2 Sat 98 06/19/16 03:58 POC ABG Base Excess 0 06/19/16 03:58 FiO2 40 % 06/19/16 03:58 Sodium 143 mmol/L (137-145) 06/19/16 03:40 Potassium 4.4 mmol/L (3.6-5.0) 06/19/16 03:40 Chloride 105.6 mmol/L (98-107) 06/19/16 03:40 Carbon Dioxide 24 mmol/L (22-30) 06/19/16 03:40 Anion Gap 18 mmol/L 06/19/16 03:40 BUN 5 mg/dL (9-20) L 06/19/16 03:40 Creatinine 0.7 mg/dL (0.8-1.5) L 06/19/16 03:40 Estimated GFR > 60 ml/min 06/19/16 03:40 BUN/Creatinine Ratio 7.14 % 06/19/16 03:40 Glucose 189 mg/dL (75-100) H 06/19/16 03:40 Lactic Acid 2.9 mmol/L (0.7-2.0) H* 06/18/16 16:56 Calcium 7.5 mg/dL (8.4-10.2) L 06/19/16 03:40 Magnesium 1.5 mg/dL (1.7-2.3) L 06/18/16 14:05 Total Bilirubin 0.6 mg/dL (0.1-1.2) 06/19/16 03:40 AST 30 units/L (5-40) 06/19/16 03:40 ALT 72 units/L (7-56) H 06/19/16 03:40 Alkaline Phosphatase 114 units/L (35-129) 06/19/16 03:40 Total Creatine Kinase 25 units/L (55-170) L 06/18/16 14:05 Total Protein 5.7 g/dL (6.3-8.2) L 06/19/16 03:40 Albumin 3.2 g/dL (3.9-5) L 06/19/16 03:40 Albumin/Globulin Ratio 1.3 % 06/19/16 03:40 TSH 3.680 mlU/mL (0.270-4.200) 06/18/16 14:05 Urine Color Yellow (Yellow) 06/18/16 14:05 Urine Turbidity Clear (Clear) 06/18/16 14:05 Urine pH 6.0 (5.0-7.0) 06/18/16 14:05 Ur Specific [place] 1.010 (1.003-1.030) 06/18/16 14:05 Urine Protein <15 mg/dl mg/dL (Negative) 06/18/16 14:05 Urine Glucose (UA) Neg mg/dL (Negative) 06/18/16 14:05 Urine Ketones Neg mg/dL (Negative) 06/18/16 14:05 Urine Blood Neg (Negative) 06/18/16 14:05 Urine Nitrite Neg (Negative) 06/18/16 14:05 Urine Bilirubin Neg (Negative) 06/18/16 14:05 Urine Urobilinogen < 2.0 mg/dL (<2.0) 06/18/16 14:05 Ur Leukocyte Esterase Neg (Negative) 06/18/16 14:05 Urine WBC (Auto) 4.0 /HPF (0.0-6.0) 06/18/16 14:05 Urine RBC (Auto) 1.0 /HPF (0.0-6.0) 06/18/16 14:05 Urine Bacteria (Auto) 1+ /HPF (Negative) 06/18/16 14:05 Urine Mucus Few /HPF 06/18/16 14:05 Salicylates < 0.3 mg/dL (2.8-20.0) L 06/18/16 14:05 Urine Opiates Screen Presumptive negative 06/18/16 14:05 Urine Methadone Screen Presumptive negative 06/18/16 14:05 Acetaminophen < 15.0 ug/mL (10.0-30.0) 06/18/16 16:56 Ur Barbiturates Screen Presumptive negative 06/18/16 14:05 Ur Phencyclidine Scrn Presumptive negative 06/18/16 14:05 Ur Amphetamines Screen Presumptive negative 06/18/16 14:05 U Benzodiazepines Scrn Presumptive positive 06/18/16 14:05 Urine Cocaine Screen Presumptive negative 06/18/16 14:05 U Marijuana (THC) Screen Presumptive negative 06/18/16 14:05 Drugs of Abuse Note Disclamer 06/18/16 14:05 Plasma/Serum Alcohol 0.13 gm% (0-0.07) H 06/18/16 14:05
--- NOTE | 2016-06-19 11:37 | Consultation ---
History of Present Illness Consult date: 06/19/16 Requesting physician: GRACIA ALMODOVAR Reason for consult: other (Drug OD; Acute Respiratory Failure) History of present illness: PULMONARY CONSULT NOTE (Full note dictated # [id number]) please see dictated notes for full details Past History Past Medical History: hypertension, other (dEPRESSION) Past Surgical History: No surgical history Family history: hypertension Medications and Allergies Allergies Allergy/AdvReac Type Severity Reaction Status Date / Time NSAIDS (Non-Steroidal AdvReac Unknown Verified 06/18/16 19:28 Anti-Inflamma Active Meds: Active Medications Acetaminophen (Tylenol) 650 mg PO Q4H PRN PRN Reason: Pain MILD(1-3)/Fever >100.5/HIGHTOWER Last Admin: 06/19/16 07:44 Dose: 650 mg Bisacodyl (Dulcolax) 10 mg CA QDAY PRN PRN Reason: Constipation unrelieved by MOM Famotidine (Pepcid) 20 mg IV BID ROBBY Last Admin: 06/19/16 09:56 Dose: 20 mg Dextrose/Sodium Chloride (D5ns) 1,000 mls @ 100 mls/hr IV DIRECT ROBBY Last Admin: 06/19/16 10:03 Dose: 100 mls/hr Fentanyl Citrate (Fentanyl Drip Premix) 2,000 mcg in 100 mls @ 6.05 mls/hr IV TITR ROBBY; 1 MCG/KG/HR PRN Reason: Protocol Last Admin: 06/19/16 10:02 Dose: 1 mcg/kg/hr, 6.05 mls/hr Magnesium Hydroxide (Milk Of Magnesia) 30 ml PO Q4H PRN PRN Reason: Constipation Ondansetron HCl (Zofran) 4 mg IV Q8H PRN PRN Reason: N/V unrelieved by Reglan Physical Examination Vital signs: Vital Signs Resp 24 06/18/16 13:50 Results - Laboratory Findings CBC and BMP: 06/19/16 03:40 06/19/16 03:40 ABG POC ABG pH 7.422 (7.35-7.45) 06/19/16 03:58 POC ABG pCO2 37.8 (35-45) 06/19/16 03:58 POC ABG pO2 110 (80-105) H 06/19/16 03:58 POC ABG HCO3 24.6 06/19/16 03:58 POC ABG Total CO2 26 06/19/16 03:58 POC ABG O2 Sat 98 06/19/16 03:58 PT/INR, D-dimer PT 18.4 Sec. (12.2-14.9) H 06/18/16 17:05 INR 1.53 (0.87-1.13) H 06/18/16 17:05 Abnormal lab findings: Abnormal Labs 06/18/16 06/18/16 06/18/16 16:56 17:05 18:58 WBC RBC Seg Neuts % (Manual) Lymphocytes % (Manual) Seg Neutrophils # Man Lymphocytes # (Manual) PT 18.4 H INR 1.53 H POC ABG pO2 BUN 5 L Creatinine 0.6 L Glucose 164 H Lactic Acid 2.9 H* Calcium 7.2 L ALT Total Protein Albumin 06/19/16 06/19/16 06/19/16 03:40 03:40 03:58 WBC 11.6 H RBC 5.14 H Seg Neuts % (Manual) 92.0 H Lymphocytes % (Manual) 5.0 L Seg Neutrophils # Man 10.7 H Lymphocytes # (Manual) 0.6 L PT INR POC ABG pO2 110 H BUN 5 L Creatinine 0.7 L Glucose 189 H Lactic Acid Calcium 7.5 L ALT 72 H Total Protein 5.7 L Albumin 3.2 L
[2016-06-19] MEDS: LOVENOX SUB-Q SCH (13:12)
[2016-06-19 15:08] LABS: ISTAT Base Excess 0; ISTAT HCO3 25.3; ISTAT PCO2 42.1 (35-45); ISTAT PH 7.387 (7.35-7.45); ISTAT PO2 97 (80-105); ISTAT SO2 97; ISTAT TCO2 27
--- NOTE | 2016-06-19 16:46 | Admit Criteria Form ---
Admission Criteria Documentation: RESPIRATORY FAILURE GRG Clinical Indications for Admission to Inpatient Care (Place 'X' for any and all applicable criteria): Hospital admission is needed for appropriate care of the patient because of acute respiratory failure or insufficiency as indicated by ANY ONE of the following(1)(2)(3)(4)(5)(6)(7)(8): [ ]I. Mechanical ventilation needed (acute invasive or noninvasive) [X ]II. Severe ventilation deficit as indicated by ANY ONE of the following (9 ) [ X]a) Respiratory acidosis (pH less than 7.32 and partial pressure of carbon dioxide greater than 40 mm Hg (5.3 kPa)) [ ]b) Partial pressure of carbon dioxide greater than 44 mm Hg (5.9 kPa ) (new) [ ]c) Airflow measurements less than 25% of predicted (eg, peak expiratory flow rate less than 100 L/minute) [ ]d) Forced vital capacity less than 15 mL/kg of ideal body weight, or 50% decrease in vital capacity from baseline [ ]III. Noncardiac pulmonary edema not resolving with rapid emergency treatment (8) [ ]IV. Severe respiratory distress as indicated by ANY ONE of the following: [ ]a) Severe tachypnea (respiratory rate greater than 30, greater than 45 for 6-month-old, greater than 60 for ) [ ]b) Severe hypoxemia (partial pressure of oxygen less than 50 mm Hg ( 6.7 kPa) on greater than 50% oxygen or partial pressure of oxygen to FIO2 ratio less than 200) [ ]c) Mental status deterioration from respiratory disease [ ]V. Airway obstruction or inadequate protection [A](10)(11) The original [employer] content created by [employer] has been revised. The portions of the content which have been revised are identified through the use of italic text or in bold, and [email or web address] has neither reviewed nor approved the modified material. All other unmodified content is copyright [employer]. Please see references footnoted in the original [employer] edition 2016 Admission Criteria Met: Yes
[2016-06-19 17:56] LABS: Magnesium 1.5 mg/dL (1.7-2.3)
[2016-06-19] MEDS ORDERED: AMBIEN PO PRN (21:13)
--- NOTE | 2016-06-20 05:17 | Consultation ---
CONSULTING PHYSICIAN: David Arteaga MD REASON FOR CONSULTATION: Acute respiratory failure, on the ventilator. CHIEF COMPLAINT AND HISTORY OF PRESENT ILLNESS: The patient is a 31-year-old male with past medical history significant for prior suicide attempts who was brought into the Emergency Room by emergency medical services after an overdose. He was found in the hallway complaining of an overdose on clonidine and Valium and possibly . He had taken the medication about 45 minutes prior to the arrival. He did admit to being suicidal. Initially, he was somnolent, gargling, did not appear to be protecting his airways. He was intubated, a poison control was called and necessary interventions were started. He was transferred to the Intensive Care Unit where I stopped by to see him. When I stopped by to see him, he was doing better. He had just been placed on spontaneous breathing trial. He was able to write down his concerns. He was asking for some water to drink. He admits to a 10+ pack year tobacco smoking history. He denied any nausea, vomiting as far as he knows prior to coming in. His mom is in the room, states that he had some upper respiratory tract type symptoms prior to coming in, but that was it. That really is as much of the history of presentation as I have. PAST MEDICAL HISTORY: He has a psychiatric history. It is unclear what the diagnosis is. PAST SURGICAL HISTORY: Unknown. MEDICATIONS: He was on at the time I stopped by to see him, according to the medication administration record included the following: Tylenol 650 mg p.o. q.4h. p.r.n. mild pain or fevers, Lovenox 40 mg subcutaneous daily, Pepcid 20 mg IV b.i.d., fentanyl drip had been going at 1 mcg/kg per hour that is on hold now, and Zofran 4 mg IV q.8h. p.r.n. ALLERGIES: NSAIDs. Nature of this allergy is unknown. DIET: Obese gentleman. Denies significant weight loss or gain in the preceding few weeks to months. FAMILY AND SOCIAL HISTORY: Lives in the community. 10+ pack year tobacco smoking history. Denies alcohol or illicit drug use or abuse. REVIEW OF SYSTEMS: Difficult to obtain due to his medical condition. Since he has been here, no gross hematochezia or melena, no gross hematuria, no hematemesis, no hemoptysis, no bloody tracheal secretions, no seizures. PHYSICAL EXAMINATION: VITAL SIGNS: At initial presentation in the Emergency Room, he was afebrile, temperature was 97.5, pulse was 69, respiratory rate was 20, blood pressure was 117/74, oxygen sats were 98%, inspired oxygen concentration was not reported. His T-max since admission was a fever of 103.1. HEAD, EYES, EARS, NOSE, AND THROAT: Pupils are equal, round, about 3 mm, reactive to light. Extraocular muscle movements appeared intact. Endotracheal tube was in place, taped at the lips around 23-24 cm. Grossly, no palpable lymph nodes in the supraclavicular or submandibular lymph node chains. LUNGS: Auscultation of both lung velazquez were clear, no wheezing. HEART: Heart sounds 1 and 2 were heard. There were regular rate and rhythm at the time of my evaluation. ABDOMEN: Soft, full, bowel sounds are positive, nontender. EXTREMITIES: Without overt digital clubbing, cyanosis, or pedal edema. NEUROLOGIC: The exam was grossly nonfocal. LABORATORY DATA: From my review are as follows: Admission white cell count 12,900 with a hemoglobin of 16.1, hematocrit of 49.0, and platelets 246. No band forms are reported. INR was 1.53. ABG then showed a pH of 7.32, pCO2 was 48, pO2 was 149, this was on 60% FiO2. Serum sodium was 141, potassium 3.1, chloride 105, bicarbonate 17, BUN 4, creatinine 0.7, and glucose was 140. Lactic acid level was 3.6 at presentation, trending down to 2.9. Magnesium was low at 1.5. AST elevated at 62, ALT was elevated at 91, albumin was low at 3.2. Urinalysis was negative for nitrites, leukocyte esterase. Urine drug screen presumptive positive for benzos. Tylenol and aspirin levels were within expected limits. Blood alcohol level was elevated at 0.13. Serum potassium is corrected today. White count is 11,600. All cultures are no growth to date. CT scans were done. CT scan of the head was read as negative on enhanced CT of the brain. A CT scan was also done of the C-spine. It showed no acute injury. Chest x-ray was done, underpenetrated right IJ central line, tip is in the distal SVC. It is a lordotic film. He may have borderline cardiomegaly and I do not think there really any major infiltrates on this chest x-ray. Element of hypoventilation on that particular film, though the ET tube tip was way high, appeared to be really in the subglottic area. ASSESSMENT AND PLAN: We have a young gentleman in with drug overdose and suicide attempt. From a respiratory standpoint, he is doing much better. We will adjust the endotracheal tube. He is, however, having e a spontaneous breathing trial, which I believe he is going to pass. If that is the case, he will be extubated. Bronchodilators will be on a p.r.n. basis. Aspiration precautions and other ventilator bundles will be instituted for now and I will follow him clinically. Oxygen will be titrated to keep sats greater than or equal to about 92-94%. From a cardiovascular standpoint, hemodynamically stable, was bradycardic earlier, but not now. We will follow him clinically. From a GI and nutritional standpoint, we will hold on beginning tube feeds and aspiration precautions will be maintained. If he is extubated, an evaluation will be done. He is on GI prophylaxis. From a renal standpoint, most electrolyte abnormalities have been corrected. Magnesium will be corrected now. Phosphorus levels will also be ordered. Inputs and outputs will be monitored. Electrolytes will be corrected as necessary. From a hematologic standpoint, no evidence of bleeding. He is appropriately on DVT prophylaxis. We will follow him clinically. From an infectious disease standpoint, cultures are all negative. I note the fevers, etiology could be multiple. I will get a D-dimer level, really just for the negative predictive value. I will hold on empiric antibiotics at this point; however, I will get a CRP level and repeat the lactic acid level. If they are trending high, If the lactate is trending backup____. If the CRP level is significantly elevated then I will begin empiric antibiotics. Anti-infectives if started will ultimately be deescalated based on results of clinical and microbiologic data. 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 He will be obviously under a 01/05 until cleared by psychiatry. From a general and hospital healthcare maintenance standpoint, he is on GI and DVT prophylaxis. Flu and pneumonia vaccination will be per protocol. Thank you very much for the consult. I should say he is critically ill on life-sustaining interventions including mechanical ventilatory support at risk for further decompression including . At this time, I spent about 30-35 minutes of critical care time without overlap and excluding any procedural time that may be necessary. I will go back to discuss with the patient and his mother and allay her fears with regards to the fevers. JOB# [id number] SUNIL/ANGEL
[2016-06-20 05:30] LABS: Basophils % (Auto) 0.1 % (0.0-1.8); Eosinophils % (Auto) 0.3 % (0.0-4.3); Hematocrit 38.8 % (35.5-45.6); Hemoglobin 12.8 gm/dl (11.8-15.2); Mean Corpuscular HGB Conc 33 % (32-34); Mean Corpuscular Hemoglobin 29 pg (28-32); Mean Corpuscular Volume 88 fl (84-94); Platelet Count 129 K/mm3 (140-440); Red Blood Count 4.41 M/mm3 (3.65-5.03); Red Cell Distribution Width 13.9 % (13.2-15.2); White Blood Count 8.7 K/mm3 (4.5-11.0)
[2016-06-20 05:53] LABS: Anion Gap 15 mmol/L; Blood Urea Nitrogen 7 mg/dL (9-20); Calcium 7.4 mg/dL (8.4-10.2); Carbon Dioxide 26 mmol/L (22-30); Chloride 101.1 mmol/L (98-107); Glucose 136 mg/dL (75-100); Sodium 138 mmol/L (137-145)
[2016-06-20] MEDS: D5NS 1,000 ML IV SCH (07:01)
[2016-06-20] MEDS ORDERED: MAGNESIUM SULFATE 4GM/100ML 4 GM/100 ML BAG IV ONE (09:00)
[2016-06-20] MEDS: PEPCID PO SCH ×2 (09:29→23:57)
[2016-06-20] MEDS: LOVENOX SUB-Q SCH (09:29)
--- NOTE | 2016-06-20 10:58 | Progress Note ---
Subjective Date of service: 06/20/16 Principal diagnosis: Acute Respiratory Failure; Drug OD Interval history: Seen and examined at bedside; 24 hour events reviewed; nursing and respiratory care staff consulted; no adverse overnight events reported to me; Objective Vital Signs - 12hr 06/19/16 06/19/16 06/19/16 23:01 23:13 23:18 Temperature Pulse Rate 41 L 58 L Pulse Rate [ 41 L From Monitor] Respiratory 11 L 17 16 Rate Blood Pressure 100/60 100/60 O2 Sat by Pulse 97 98 97 Oximetry 06/19/16 06/20/16 06/20/16 23:30 00:00 00:31 Temperature 98.2 F Pulse Rate 40 L 43 L 41 L Pulse Rate [ From Monitor] Respiratory 11 L 10 L 12 Rate Blood Pressure 97/58 104/65 99/53 O2 Sat by Pulse 97 96 Oximetry 06/20/16 06/20/16 06/20/16 01:01 01:30 02:01 Temperature Pulse Rate 45 L 41 L 42 L Pulse Rate [ From Monitor] Respiratory 16 11 L 10 L Rate Blood Pressure 95/56 99/59 99/55 O2 Sat by Pulse 95 95 96 Oximetry 06/20/16 06/20/16 06/20/16 02:31 03:01 03:05 Temperature Pulse Rate 42 L 41 L Pulse Rate [ 43 L From Monitor] Respiratory 12 12 18 Rate Blood Pressure 95/52 99/60 O2 Sat by Pulse 96 94 97 Oximetry 06/20/16 06/20/16 06/20/16 03:30 04:00 04:01 Temperature 97.4 F L Pulse Rate 43 L 42 L Pulse Rate [ From Monitor] Respiratory 11 L 11 L Rate Blood Pressure 105/70 106/68 O2 Sat by Pulse 96 98 Oximetry 06/20/16 06/20/16 06/20/16 04:31 05:00 05:30 Temperature Pulse Rate 42 L 42 L 40 L Pulse Rate [ From Monitor] Respiratory 10 L 10 L 14 Rate Blood Pressure 112/71 112/71 116/64 O2 Sat by Pulse 95 96 98 Oximetry 06/20/16 06/20/16 06/20/16 06:00 06:30 07:00 Temperature 97.4 F L Pulse Rate 41 L 41 L 41 L Pulse Rate [ From Monitor] Respiratory 11 L 14 11 L Rate Blood Pressure 119/65 112/66 113/62 O2 Sat by Pulse 97 98 99 Oximetry 06/20/16 06/20/16 06/20/16 07:30 08:00 08:30 Temperature 97.4 F L Pulse Rate 57 L 68 53 L Pulse Rate [ From Monitor] Respiratory 14 15 13 Rate Blood Pressure 124/96 121/84 114/74 O2 Sat by Pulse 99 99 Oximetry CBC and BMP: 06/20/16 04:25 06/20/16 04:25 ABG, PT/INR, D-dimer: ABG POC ABG pH 7.387 (7.35-7.45) 06/19/16 14:31 POC ABG pCO2 42.1 (35-45) 06/19/16 14:31 POC ABG pO2 97 (80-105) 06/19/16 14:31 POC ABG HCO3 25.3 06/19/16 14:31 POC ABG Total CO2 27 06/19/16 14:31 POC ABG O2 Sat 97 06/19/16 14:31 PT/INR, D-dimer PT 18.4 Sec. (12.2-14.9) H 06/18/16 17:05 INR 1.53 (0.87-1.13) H 06/18/16 17:05 Abnormal lab findings: Abnormal Labs 06/18/16 06/18/16 06/18/16 16:56 17:05 18:58 WBC RBC Plt Count [place] % (Auto) Seg Neutrophils % Seg Neuts % (Manual) Lymphocytes % (Manual) Seg Neutrophils # Man Lymphocytes # (Manual) PT 18.4 H INR 1.53 H POC ABG pO2 BUN 5 L Creatinine 0.6 L Glucose 164 H Lactic Acid 2.9 H* Calcium 7.2 L Magnesium ALT Total Protein Albumin 06/19/16 06/19/16 06/19/16 03:40 03:40 03:58 WBC 11.6 H RBC 5.14 H Plt Count [place] % (Auto) Seg Neutrophils % Seg Neuts % (Manual) 92.0 H Lymphocytes % (Manual) 5.0 L Seg Neutrophils # Man 10.7 H Lymphocytes # (Manual) 0.6 L PT INR POC ABG pO2 110 H BUN 5 L Creatinine 0.7 L Glucose 189 H Lactic Acid Calcium 7.5 L Magnesium ALT 72 H Total Protein 5.7 L Albumin 3.2 L 03/06/20/16 06/20/16 16:07 04:25 04:25 WBC RBC Plt Count 129 L [place] % (Auto) 7.7 H Seg Neutrophils % 72.7 H Seg Neuts % (Manual) Lymphocytes % (Manual) Seg Neutrophils # Man Lymphocytes # (Manual) PT INR POC ABG pO2 BUN 7 L Creatinine 0.5 L Glucose 136 H Lactic Acid Calcium 7.4 L Magnesium 1.5 L ALT Total Protein Albumin
--- NOTE | 2016-06-20 11:51 | Progress Note ---
Assessment and Plan Assessment and plan: 1. Acute hypoxic respiratory failure. Etiology secondary to toxic metabolic encephalopathy from drug overdose. Patient currently is intubated on a fentanyl drip. Patient has had hemodynamic stability and remained normotensive even though clonidine was reported as a drug use and overdose. Patient is to maintain on a ventilator until mental status improves and back to baseline. Pulmonary has been consult and will evaluate the patient. Waiting ventilator per protocol. 2. Toxic metabolic encephalopathy. Etiology secondary to drug overdose. Continue supportive care. 3. Drug overdose. Patient took clonidine, Valium and Celexa. Patient with hemodynamic stability and no evidence of hypotension. Patient had some widening of the QRS and received bicarbonate IV. Tracing appears stable on the monitor currently. Continue to observe on telemetry. Check EKG. Consider cardiology consultation. Hepatic and renal function appear to be stable. Continue to check CPK for rhabdomyolysis. No evidence of serotonin syndrome except for fever. No signs of muscle rigidity. 4. Suicide attempt. Patient has been placed on 1013. Patient will have psychiatric evaluation when more stable. 5. Fever. This may represent early signs of serotonin syndrome versus sepsis. No signs of any infectious process at present. Continue to monitor temperature curve. 6. Hypertension. Patient actually slightly hypotensive at present. 7. Disposition. Patient will be transferred to the floor with sitter. History Interval history: This is a 31-year-old male. He is previously unknown to me. He is brought to the hospital by EMS after overdose. As per report from EMS, patient was found in the hallway, complaining of overdose on clonidine and Valium, possibly citalopram. EMS verbally reports that overdose happened approximately 45 minutes prior to arrival. The patient endorses suicidality. Patient is extubated and doing well. Mother is at the bedside. All questions answered. Hospitalist Physical - Constitutional Vitals: Temp Pulse Resp BP Pulse Ox 97.4 F L 53 L 13 114/74 99 06/20/16 08:00 06/20/16 08:30 06/20/16 08:30 06/20/16 08:30 06/20/16 08:30 General appearance: Present: no acute distress, well-nourished - EENT Eyes: Present: PERRL, EOM intact ENT: hearing intact, clear oral mucosa, dentition normal - Neck Neck: Present: supple, normal ROM - Respiratory Respiratory effort: normal Respiratory: bilateral: CTA - Cardiovascular Rhythm: regular Heart Sounds: Present: S1 & S2. Absent: gallop, rub - Extremities Extremities: no ischemia, No edema, Full ROM - Abdominal General gastrointestinal: soft, non-tender, non-distended, normal bowel sounds - Integumentary Integumentary: Present: clear, warm, dry - Neurologic Neurologic: CNII-XII intact, moves all extremities Results - Labs CBC & Chem 7: 06/20/16 04:25 06/20/16 04:25 Labs: Laboratory Last Values WBC 8.7 K/mm3 (4.5-11.0) 06/20/16 04:25 RBC 4.41 M/mm3 (3.65-5.03) 06/20/16 04:25 Hgb 12.8 gm/dl (11.8-15.2) 06/20/16 04:25 Hct 38.8 % (35.5-45.6) D 06/20/16 04:25 MCV 88 fl (84-94) 06/20/16 04:25 MCH 29 pg (28-32) 06/20/16 04:25 MCHC 33 % (32-34) 06/20/16 04:25 RDW 13.9 % (13.2-15.2) 06/20/16 04:25 Plt Count 129 K/mm3 (140-440) L 06/20/16 04:25 Lymph % (Auto) 19.2 % (13.4-35.0) 06/20/16 04:25 [place] % (Auto) 7.7 % (0.0-7.3) H 06/20/16 04:25 Eos % (Auto) 0.3 % (0.0-4.3) 06/20/16 04:25 Baso % (Auto) 0.1 % (0.0-1.8) 06/20/16 04:25 Lymph # 1.7 K/mm3 (1.2-5.4) 06/20/16 04:25 [place] # 0.7 K/mm3 (0.0-0.8) 06/20/16 04:25 Eos # 0.0 K/mm3 (0.0-0.4) 06/20/16 04:25 Baso # 0.0 K/mm3 (0.0-0.1) 06/20/16 04:25 Add Manual Diff Complete 06/19/16 03:40 Total Counted 100 06/19/16 03:40 Seg Neutrophils % 72.7 % (40.0-70.0) H 06/20/16 04:25 Seg Neuts % (Manual) 92.0 % (40.0-70.0) H 06/19/16 03:40 Band Neutrophils % 0 % 06/19/16 03:40 Lymphocytes % (Manual) 5.0 % (13.4-35.0) L 06/19/16 03:40 Reactive Lymphs % (Man) 0 % 06/19/16 03:40 Monocytes % (Manual) 3.0 % (0.0-7.3) 06/19/16 03:40 Eosinophils % (Manual) 0 % (0.0-4.3) 06/19/16 03:40 Basophils % (Manual) 0 % (0.0-1.8) 06/19/16 03:40 Metamyelocytes % 0 % 06/19/16 03:40 Myelocytes % 0 % 06/19/16 03:40 Promyelocytes % 0 % 06/19/16 03:40 Blast Cells % 0 % 06/19/16 03:40 Nucleated RBC % Not Reportable 06/19/16 03:40 Seg Neutrophils # 6.3 K/mm3 (1.8-7.7) 06/20/16 04:25 Seg Neutrophils # Man 10.7 K/mm3 (1.8-7.7) H 06/19/16 03:40 Band Neutrophils # 0.0 K/mm3 06/19/16 03:40 Lymphocytes # (Manual) 0.6 K/mm3 (1.2-5.4) L 06/19/16 03:40 Abs React Lymphs (Man) 0.0 K/mm3 06/19/16 03:40 Monocytes # (Manual) 0.3 K/mm3 (0.0-0.8) 06/19/16 03:40 Eosinophils # (Manual) 0.0 K/mm3 (0.0-0.4) 06/19/16 03:40 Basophils # (Manual) 0.0 K/mm3 (0.0-0.1) 06/19/16 03:40 Metamyelocytes # 0.0 K/mm3 06/19/16 03:40 Myelocytes # 0.0 K/mm3 06/19/16 03:40 Promyelocytes # 0.0 K/mm3 06/19/16 03:40 Blast Cells # 0.0 K/mm3 06/19/16 03:40 WBC Morphology Not Reportable 06/19/16 03:40 Hypersegmented Neuts Not Reportable 06/19/16 03:40 Hyposegmented Neuts Not Reportable 06/19/16 03:40 Hypogranular Neuts Not Reportable 06/19/16 03:40 Smudge Cells Not Reportable 06/19/16 03:40 Toxic Granulation Not Reportable 06/19/16 03:40 Toxic Vacuolation Not Reportable 06/19/16 03:40 Dohle Bodies Not Reportable 06/19/16 03:40 Pelger-Huet Anomaly Not Reportable 06/19/16 03:40 Sam Rods Not Reportable 06/19/16 03:40 Platelet Estimate Appears normal 06/19/16 03:40 Clumped Platelets Not Reportable 06/19/16 03:40 Plt Clumps, EDTA Not Reportable 06/19/16 03:40 Large Platelets Not Reportable 06/19/16 03:40 Giant Platelets Not Reportable 06/19/16 03:40 Platelet Satelliting Not Reportable 06/19/16 03:40 Plt Morphology Comment Not Reportable 06/19/16 03:40 RBC Morphology Normal 06/19/16 03:40 Dimorphic RBCs Not Reportable 06/19/16 03:40 Polychromasia Not Reportable 06/19/16 03:40 Hypochromasia Not Reportable 06/19/16 03:40 Poikilocytosis Not Reportable 06/19/16 03:40 Anisocytosis Not Reportable 06/19/16 03:40 Microcytosis Not Reportable 06/19/16 03:40 Macrocytosis Not Reportable 06/19/16 03:40 Spherocytes Not Reportable 06/19/16 03:40 Pappenheimer Bodies Not Reportable 06/19/16 03:40 Sickle Cells Not Reportable 06/19/16 03:40 Target Cells Not Reportable 06/19/16 03:40 Tear Drop Cells Not Reportable 06/19/16 03:40 Ovalocytes Not Reportable 06/19/16 03:40 Helmet Cells Not Reportable 06/19/16 03:40 Vela-Collyer Bodies Not Reportable 06/19/16 03:40 Morrow Rings Not Reportable 06/19/16 03:40 Chassell Cells Not Reportable 06/19/16 03:40 Bite Cells Not Reportable 06/19/16 03:40 Crenated Cell Not Reportable 06/19/16 03:40 Elliptocytes Not Reportable 06/19/16 03:40 Acanthocytes (Spur) Not Reportable 06/19/16 03:40 Rouleaux Not Reportable 06/19/16 03:40 Hemoglobin C Crystals Not Reportable 06/19/16 03:40 Schistocytes Not Reportable 06/19/16 03:40 Malaria parasites Not Reportable 06/19/16 03:40 Jai Bodies Not Reportable 06/19/16 03:40 Hem Pathologist Commnt No 06/19/16 03:40 PT 18.4 Sec. (12.2-14.9) H 06/18/16 17:05 INR 1.53 (0.87-1.13) H 06/18/16 17:05 APTT 29.9 Sec. (24.2-36.6) 06/18/16 17:05 POC ABG pH 7.387 (7.35-7.45) 06/19/16 14:31 POC ABG pCO2 42.1 (35-45) 06/19/16 14:31 POC ABG pO2 97 (80-105) 06/19/16 14:31 POC ABG HCO3 25.3 06/19/16 14:31 POC ABG Total CO2 27 06/19/16 14:31 POC ABG O2 Sat 97 06/19/16 14:31 POC ABG Base Excess 0 06/19/16 14:31 FiO2 30 % 06/19/16 14:31 Sodium 138 mmol/L (137-145) 06/20/16 04:25 Potassium 4.0 mmol/L (3.6-5.0) 06/20/16 04:25 Chloride 101.1 mmol/L (98-107) 06/20/16 04:25 Carbon Dioxide 26 mmol/L (22-30) 06/20/16 04:25 Anion Gap 15 mmol/L 06/20/16 04:25 BUN 7 mg/dL (9-20) L 06/20/16 04:25 Creatinine 0.5 mg/dL (0.8-1.5) L 06/20/16 04:25 Estimated GFR > 60 ml/min 06/20/16 04:25 BUN/Creatinine Ratio 14.00 % 06/20/16 04:25 Glucose 136 mg/dL (75-100) H 06/20/16 04:25 Lactic Acid 2.9 mmol/L (0.7-2.0) H* 06/18/16 16:56 Calcium 7.4 mg/dL (8.4-10.2) L 06/20/16 04:25 Phosphorus 2.7 mg/dL (2.5-4.5) 06/19/16 16:07 Magnesium 1.5 mg/dL (1.7-2.3) L 06/19/16 16:07 Total Bilirubin 0.6 mg/dL (0.1-1.2) 06/19/16 03:40 AST 30 units/L (5-40) 06/19/16 03:40 ALT 72 units/L (7-56) H 06/19/16 03:40 Alkaline Phosphatase 114 units/L (35-129) 06/19/16 03:40 Total Creatine Kinase 25 units/L (55-170) L 06/18/16 14:05 C-Reactive Protein 0.00 mg/dL (0.00-1.30) 06/19/16 16:07 Total Protein 5.7 g/dL (6.3-8.2) L 06/19/16 03:40 Albumin 3.2 g/dL (3.9-5) L 06/19/16 03:40 Albumin/Globulin Ratio 1.3 % 06/19/16 03:40 TSH 3.680 mlU/mL (0.270-4.200) 06/18/16 14:05 Urine Color Yellow (Yellow) 06/18/16 14:05 Urine Turbidity Clear (Clear) 06/18/16 14:05 Urine pH 6.0 (5.0-7.0) 06/18/16 14:05 Ur Specific Daphne 1.010 (1.003-1.030) 06/18/16 14:05 Urine Protein <15 mg/dl mg/dL (Negative) 06/18/16 14:05 Urine Glucose (UA) Neg mg/dL (Negative) 06/18/16 14:05 Urine Ketones Neg mg/dL (Negative) 06/18/16 14:05 Urine Blood Neg (Negative) 06/18/16 14:05 Urine Nitrite Neg (Negative) 06/18/16 14:05 Urine Bilirubin Neg (Negative) 06/18/16 14:05 Urine Urobilinogen < 2.0 mg/dL (<2.0) 06/18/16 14:05 Ur Leukocyte Esterase Neg (Negative) 06/18/16 14:05 Urine WBC (Auto) 4.0 /HPF (0.0-6.0) 06/18/16 14:05 Urine RBC (Auto) 1.0 /HPF (0.0-6.0) 06/18/16 14:05 Urine Bacteria (Auto) 1+ /HPF (Negative) 06/18/16 14:05 Urine Mucus Few /HPF 06/18/16 14:05 Salicylates < 0.3 mg/dL (2.8-20.0) L 06/18/16 14:05 Urine Opiates Screen Presumptive negative 06/18/16 14:05 Urine Methadone Screen Presumptive negative 06/18/16 14:05 Acetaminophen < 15.0 ug/mL (10.0-30.0) 06/18/16 16:56 Ur Barbiturates Screen Presumptive negative 06/18/16 14:05 Ur Phencyclidine Scrn Presumptive negative 06/18/16 14:05 Ur Amphetamines Screen Presumptive negative 06/18/16 14:05 U Benzodiazepines Scrn Presumptive positive 06/18/16 14:05 Urine Cocaine Screen Presumptive negative 06/18/16 14:05 U Marijuana (THC) Screen Presumptive negative 06/18/16 14:05 Drugs of Abuse Note Disclamer 06/18/16 14:05 Plasma/Serum Alcohol 0.13 gm% (0-0.07) H 06/18/16 14:05
--- NOTE | 2016-06-20 14:58 | Consultation ---
History of Present Illness - Reason for Consult Consult date: 06/20/16 Reason for consult: Mental Health Evaluation Requesting physician: GRACIA ALMODOVAR - Chief Complaint Chief complaint: I just wanted to get some sleep - History of Present Psychiatric Illness ER Assessment - This is a 31-year-old male. He is previously unknown to me. He is brought to the hospital by EMS after overdose. As per verbal report from EMS, patient was found in the hallway, complaining of overdose on clonidine and Valium, possibly citalopram. EMS verbally reports that overdose happened approximately 45 minutes prior to arrival. The patient endorses suicidality. Initially upon arrival, the patient was somnolent, gurgling, did not appear to be protecting his airway. The patient was preoxygenated with 100% oxygen, received apical oxygenation, induced with ketamine, paralyzed with rocuronium, and intubated by myself with 1 attempt with no obvious complications or difficulty. An emergent orogastric tube was then placed by the nursing staff, and he was given 100 g of charcoal with sorbitol. Given concern for hemodynamic instability in the context of clonidine overdose, an emergent right-sided central line is placed by myself using ultrasound guidance with no complications, with one attempt. Nursing staff contact the [place] [facility], who made the following recommendations: Rashard from poison control states The medical parts sales counterperson unaware if Left bundle branch block on EKG is preexisting and that a QRS of 132 is of concern. Per Rashard he states the medical parts sales counterperson recommends to give pt 1 mEq/kg of bicarb IV Push to alkalinize. If the QRS of 132 is related to the Citalopram the QRS will narrow on monitor. If the QRS narrows, repeat bicarb 1 mEq/kg in 5-10 minutes. If QRS does not narrow, don't repeat bicarb dose. He states QT/QTc of 418/451 ms is not of concern unless greater than 500 ms. Pt needs serial EKGs every 2 hours. Assess for serotonin syndrome symptoms such as muscle rigidity and fever.. Pt needs baseline CPK to assess for rhabdomyolysis. Check hepatic and renal function baseline. If change in pt condition, repeat CPK, hepatic and renal function every 6-12 hours. Monitor electrolytes if EKG changes occur. Check pt tylenol level at baseline and 4 hours from baseline check. Read back and verified. Reggie wilkes 06/20/2016 -This is a 31-year-old male brought to the hospital by EMS after overdose. Upon arrival to patient's room, he was resting. Patient discussed his current admission to [facility]. He stated, "I was not trying to kill myself, I just wanted to sleep." Patient stated that he has a hx of MDD, Insomnia, and GENNA. He admitted to taking Valium (3 pills) and Clonidine (3 or 4 pills) before EMS was called. Per the patient, "I was very anxious and I took the pills." He also stated, "I had a small amount of alcohol with the pills." Per the patient, he self medicate with alcohol to help him "sleep" and "take the edge off." In the past he stated that he had SI's, but never an attempt. Per a Apr 2016 admission at [facility], he was put on a 1013 for self-inflicted injury to his left forearm. He denies SI/HI's and AVH's at this time. Patient states that he takes Wellbutrin, Lexapro, Valium, and Clonidine currently. Medications and Allergies Allergies Allergy/AdvReac Type Severity Reaction Status Date / Time NSAIDS (Non-Steroidal AdvReac Unknown Verified 06/18/16 19:28 Anti-Inflamma Active Meds: Active Medications Acetaminophen (Tylenol) 650 mg PO Q4H PRN PRN Reason: Pain MILD(1-3)/Fever >100.5/HIGHTOWER Last Admin: 06/19/16 12:24 Dose: 650 mg Bisacodyl (Dulcolax) 10 mg LA QDAY PRN PRN Reason: Constipation unrelieved by MOM Enoxaparin Sodium (Lovenox) 40 mg SUB-Q QDAY@1000 [facility] Last Admin: 06/20/16 09:29 Dose: 40 mg Famotidine (Pepcid) 20 mg PO BID [facility] Last Admin: 06/20/16 09:29 Dose: 20 mg Magnesium Hydroxide (Milk Of Magnesia) 30 ml PO Q4H PRN PRN Reason: Constipation Ondansetron HCl (Zofran) 4 mg IV Q8H PRN PRN Reason: N/V unrelieved by Reglan Zolpidem Tartrate (Ambien) 10 mg PO QHS PRN PRN Reason: Insomnia Past psychiatric history - Past Medical History Past Medical History: other (Self inflicted injury Apr 2016 admission) Past Surgical History: No surgical history - past Psychiatric treatment and history Psych: Anxiety, Depression psychiatric treatment history: Inpatient services at [facility] and seen by Dr Alvarez at [facility] in [place], [place] - Social History Social history: single, lives with family, 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) Mental Status Exam - Vital signs Last Vital Signs Temp 98.1 F 06/20/16 12:00 Pulse 53 L 06/20/16 08:30 Resp 13 06/20/16 08:30 BP 114/74 06/20/16 08:30 Pulse Ox 99 06/20/16 08:30 - Exam Narrative exam: ROS (-) Psychosis, (-) Delusionals Orientation: time, place, person Affect: normal Mood: other ("I feel fine") Thought content: other (None) Thought Process: Intact Perceptions: none Speech: normal rate and pattern Concentration: other (intact) Motor activity: other (Lying in bed) Level of consciousness: alert Memory: Intact Interaction: cooperative, pleasant Results Result Diagrams: 06/20/16 04:25 06/20/16 04:25 Abnormal lab results 06/19/16 06/20/16 06/20/16 Range/Units 16:07 04:25 04:25 Plt Count 129 L (140-440) K/mm3 [place] % (Auto) 7.7 H (0.0-7.3) % Seg Neutrophils % 72.7 H (40.0-70.0) % BUN 7 L (9-20) mg/dL Creatinine 0.5 L (0.8-1.5) mg/dL Glucose 136 H (75-100) mg/dL Calcium 7.4 L (8.4-10.2) mg/dL Magnesium 1.5 L (1.7-2.3) mg/dL All other labs normal. Assessment and Plan Assessment and plan: Impression: Patient has a hx of MDD, Insomnia, GENNA, and Alcohol Abuse. He recently had an admission to [facility] for self-inflicted injury and put on a 1013. Patient denies SI/HI's at this time. Alcohol serum 0.13 Recommendation/Plan: Continue 1013 with placement to inpatient psychiatric services. D/C'd Ambien 10 mg PO PRN (Overdose/Safety)
[2016-06-20] MEDS: TYLENOL PO PRN (23:57)
[2016-06-21 07:10] LABS: Basophils % (Auto) 0.4 % (0.0-1.8); Hematocrit 36.7 % (35.5-45.6); Hemoglobin 12.7 gm/dl (11.8-15.2); Mean Corpuscular HGB Conc 35 % (32-34); Mean Corpuscular Hemoglobin 30 pg (28-32); Mean Corpuscular Volume 87 fl (84-94); Platelet Count 112 K/mm3 (140-440); Red Blood Count 4.24 M/mm3 (3.65-5.03); Red Cell Distribution Width 13.5 % (13.2-15.2); White Blood Count 6.9 K/mm3 (4.5-11.0)
[2016-06-21 07:23] LABS: Anion Gap 14 mmol/L; Blood Urea Nitrogen 9 mg/dL (9-20); Calcium 7.3 mg/dL (8.4-10.2); Carbon Dioxide 29 mmol/L (22-30); Glucose 84 mg/dL (75-100); Potassium 3.6 mmol/L (3.6-5.0); Sodium 138 mmol/L (137-145)
[2016-06-21] MEDS: PEPCID PO SCH ×2 (10:04→21:20)
[2016-06-21] MEDS: LOVENOX SUB-Q SCH (10:04)
--- NOTE | 2016-06-21 10:29 | Progress Note ---
Assessment and Plan Assessment and plan: 1. Acute hypoxic respiratory failure. Resolved. 2. Toxic metabolic encephalopathy. Etiology secondary to drug overdose. Resolved. 3. Drug overdose. Patient took clonidine, Valium and Celexa. Patient with hemodynamic stability and no evidence of hypotension. Patient had some widening of the QRS and received bicarbonate IV on admission. Tracing appears stable on the monitor currently. Continue to observe on telemetry. Hepatic and renal function appear to be stable. No evidence of rhabdomyolysis as CK levels were normal. No evidence of serotonin syndrome except for fever which is now resolved. No signs of muscle rigidity. 4. Suicide attempt. Patient has been placed on 1013. Heart following. 5. Fever. Resolved. This may represent early signs of serotonin syndrome. No signs of any infectious process at present. Continue to monitor temperature curve. 6. Hypertension. Resume home medications as needed 7. Disposition. Patient will need transfer to inpatient psych facility. History Interval history: No new issues overnight. Hospitalist Physical - Constitutional Vitals: Temp Pulse Resp BP Pulse Ox 97.1 F L 57 L 18 97/53 97 06/21/16 09:01 06/21/16 09:01 06/21/16 09:01 06/21/16 09:01 06/21/16 09:01 General appearance: Present: no acute distress, well-nourished - EENT Eyes: Present: PERRL, EOM intact ENT: hearing intact, clear oral mucosa, dentition normal - Neck Neck: Present: supple, normal ROM - Respiratory Respiratory effort: normal Respiratory: bilateral: CTA - Cardiovascular Rhythm: regular Heart Sounds: Present: S1 & S2. Absent: gallop, rub - Extremities Extremities: no ischemia, No edema, Full ROM - Abdominal General gastrointestinal: soft, non-tender, non-distended, normal bowel sounds - Integumentary Integumentary: Present: clear, warm, dry - Neurologic Neurologic: CNII-XII intact, moves all extremities Results - Labs CBC & Chem 7: 06/21/16 06:53 06/21/16 06:53 Labs: Laboratory Last Values WBC 6.9 K/mm3 (4.5-11.0) 06/21/16 06:53 RBC 4.24 M/mm3 (3.65-5.03) 06/21/16 06:53 Hgb 12.7 gm/dl (11.8-15.2) 06/21/16 06:53 Hct 36.7 % (35.5-45.6) 06/21/16 06:53 MCV 87 fl (84-94) 06/21/16 06:53 MCH 30 pg (28-32) 06/21/16 06:53 MCHC 35 % (32-34) H 06/21/16 06:53 RDW 13.5 % (13.2-15.2) 06/21/16 06:53 Plt Count 112 K/mm3 (140-440) L 06/21/16 06:53 Lymph % (Auto) 34.6 % (13.4-35.0) 06/21/16 06:53 [place] % (Auto) 5.1 % (0.0-7.3) 06/21/16 06:53 Eos % (Auto) 2.0 % (0.0-4.3) 06/21/16 06:53 Baso % (Auto) 0.4 % (0.0-1.8) 06/21/16 06:53 Lymph # 2.4 K/mm3 (1.2-5.4) 06/21/16 06:53 [place] # 0.3 K/mm3 (0.0-0.8) 06/21/16 06:53 Eos # 0.1 K/mm3 (0.0-0.4) 06/21/16 06:53 Baso # 0.0 K/mm3 (0.0-0.1) 06/21/16 06:53 Add Manual Diff Complete 06/19/16 03:40 Total Counted 100 06/19/16 03:40 Seg Neutrophils % 57.9 % (40.0-70.0) 06/21/16 06:53 Seg Neuts % (Manual) 92.0 % (40.0-70.0) H 06/19/16 03:40 Band Neutrophils % 0 % 06/19/16 03:40 Lymphocytes % (Manual) 5.0 % (13.4-35.0) L 06/19/16 03:40 Reactive Lymphs % (Man) 0 % 06/19/16 03:40 Monocytes % (Manual) 3.0 % (0.0-7.3) 06/19/16 03:40 Eosinophils % (Manual) 0 % (0.0-4.3) 06/19/16 03:40 Basophils % (Manual) 0 % (0.0-1.8) 06/19/16 03:40 Metamyelocytes % 0 % 06/19/16 03:40 Myelocytes % 0 % 06/19/16 03:40 Promyelocytes % 0 % 06/19/16 03:40 Blast Cells % 0 % 06/19/16 03:40 Nucleated RBC % Not Reportable 06/19/16 03:40 Seg Neutrophils # 4.0 K/mm3 (1.8-7.7) 06/21/16 06:53 Seg Neutrophils # Man 10.7 K/mm3 (1.8-7.7) H 06/19/16 03:40 Band Neutrophils # 0.0 K/mm3 06/19/16 03:40 Lymphocytes # (Manual) 0.6 K/mm3 (1.2-5.4) L 06/19/16 03:40 Abs React Lymphs (Man) 0.0 K/mm3 06/19/16 03:40 Monocytes # (Manual) 0.3 K/mm3 (0.0-0.8) 06/19/16 03:40 Eosinophils # (Manual) 0.0 K/mm3 (0.0-0.4) 06/19/16 03:40 Basophils # (Manual) 0.0 K/mm3 (0.0-0.1) 06/19/16 03:40 Metamyelocytes # 0.0 K/mm3 06/19/16 03:40 Myelocytes # 0.0 K/mm3 06/19/16 03:40 Promyelocytes # 0.0 K/mm3 06/19/16 03:40 Blast Cells # 0.0 K/mm3 06/19/16 03:40 WBC Morphology Not Reportable 06/19/16 03:40 Hypersegmented Neuts Not Reportable 06/19/16 03:40 Hyposegmented Neuts Not Reportable 06/19/16 03:40 Hypogranular Neuts Not Reportable 06/19/16 03:40 Smudge Cells Not Reportable 06/19/16 03:40 Toxic Granulation Not Reportable 06/19/16 03:40 Toxic Vacuolation Not Reportable 06/19/16 03:40 Dohle Bodies Not Reportable 06/19/16 03:40 [place]uet Anomaly Not Reportable 06/19/16 03:40 Sam Rods Not Reportable 06/19/16 03:40 Platelet Estimate Appears normal 06/19/16 03:40 Clumped Platelets Not Reportable 06/19/16 03:40 Plt Clumps, EDTA Not Reportable 06/19/16 03:40 Large Platelets Not Reportable 06/19/16 03:40 Giant Platelets Not Reportable 06/19/16 03:40 Platelet Satelliting Not Reportable 06/19/16 03:40 Plt Morphology Comment Not Reportable 06/19/16 03:40 RBC Morphology Normal 06/19/16 03:40 Dimorphic RBCs Not Reportable 06/19/16 03:40 Polychromasia Not Reportable 06/19/16 03:40 Hypochromasia Not Reportable 06/19/16 03:40 Poikilocytosis Not Reportable 06/19/16 03:40 Anisocytosis Not Reportable 06/19/16 03:40 Microcytosis Not Reportable 06/19/16 03:40 Macrocytosis Not Reportable 06/19/16 03:40 Spherocytes Not Reportable 06/19/16 03:40 Pappenheimer Bodies Not Reportable 06/19/16 03:40 Sickle Cells Not Reportable 06/19/16 03:40 Target Cells Not Reportable 06/19/16 03:40 Tear Drop Cells Not Reportable 06/19/16 03:40 Ovalocytes Not Reportable 06/19/16 03:40 Helmet Cells Not Reportable 06/19/16 03:40 [place] Bodies Not Reportable 06/19/16 03:40 [place] Rings Not Reportable 06/19/16 03:40 [place] Cells Not Reportable 06/19/16 03:40 Bite Cells Not Reportable 06/19/16 03:40 Crenated Cell Not Reportable 06/19/16 03:40 Elliptocytes Not Reportable 06/19/16 03:40 Acanthocytes (Spur) Not Reportable 06/19/16 03:40 Rouleaux Not Reportable 06/19/16 03:40 Hemoglobin C Crystals Not Reportable 06/19/16 03:40 Schistocytes Not Reportable 06/19/16 03:40 Malaria parasites Not Reportable 06/19/16 03:40 Jai Bodies Not Reportable 06/19/16 03:40 Hem Pathologist Commnt No 06/19/16 03:40 PT 18.4 Sec. (12.2-14.9) H 06/18/16 17:05 INR 1.53 (0.87-1.13) H 06/18/16 17:05 APTT 29.9 Sec. (24.2-36.6) 06/18/16 17:05 POC ABG pH 7.387 (7.35-7.45) 06/19/16 14:31 POC ABG pCO2 42.1 (35-45) 06/19/16 14:31 POC ABG pO2 97 (80-105) 06/19/16 14:31 POC ABG HCO3 25.3 06/19/16 14:31 POC ABG Total CO2 27 06/19/16 14:31 POC ABG O2 Sat 97 06/19/16 14:31 POC ABG Base Excess 0 06/19/16 14:31 FiO2 30 % 06/19/16 14:31 Sodium 138 mmol/L (137-145) 06/21/16 06:53 Potassium 3.6 mmol/L (3.6-5.0) 06/21/16 06:53 Chloride 99.0 mmol/L (98-107) 06/21/16 06:53 Carbon Dioxide 29 mmol/L (22-30) 06/21/16 06:53 Anion Gap 14 mmol/L 06/21/16 06:53 BUN 9 mg/dL (9-20) 06/21/16 06:53 Creatinine 0.4 mg/dL (0.8-1.5) L 06/21/16 06:53 Estimated GFR > 60 ml/min 06/21/16 06:53 BUN/Creatinine Ratio 22.50 % 06/21/16 06:53 Glucose 84 mg/dL (75-100) 06/21/16 06:53 Lactic Acid 2.9 mmol/L (0.7-2.0) H* 06/18/16 16:56 Calcium 7.3 mg/dL (8.4-10.2) L 06/21/16 06:53 Phosphorus 2.7 mg/dL (2.5-4.5) 06/19/16 16:07 Magnesium 1.5 mg/dL (1.7-2.3) L 06/19/16 16:07 Total Bilirubin 0.6 mg/dL (0.1-1.2) 06/19/16 03:40 AST 30 units/L (5-40) 06/19/16 03:40 ALT 72 units/L (7-56) H 06/19/16 03:40 Alkaline Phosphatase 114 units/L (35-129) 06/19/16 03:40 Total Creatine Kinase 25 units/L (55-170) L 06/18/16 14:05 C-Reactive Protein 0.00 mg/dL (0.00-1.30) 06/19/16 16:07 Total Protein 5.7 g/dL (6.3-8.2) L 06/19/16 03:40 Albumin 3.2 g/dL (3.9-5) L 06/19/16 03:40 Albumin/Globulin Ratio 1.3 % 06/19/16 03:40 TSH 3.680 mlU/mL (0.270-4.200) 06/18/16 14:05 Urine Color Yellow (Yellow) 06/18/16 14:05 Urine Turbidity Clear (Clear) 06/18/16 14:05 Urine pH 6.0 (5.0-7.0) 06/18/16 14:05 Ur Specific [place] 1.010 (1.003-1.030) 06/18/16 14:05 Urine Protein <15 mg/dl mg/dL (Negative) 06/18/16 14:05 Urine Glucose (UA) Neg mg/dL (Negative) 06/18/16 14:05 Urine Ketones Neg mg/dL (Negative) 06/18/16 14:05 Urine Blood Neg (Negative) 06/18/16 14:05 Urine Nitrite Neg (Negative) 06/18/16 14:05 Urine Bilirubin Neg (Negative) 06/18/16 14:05 Urine Urobilinogen < 2.0 mg/dL (<2.0) 06/18/16 14:05 Ur Leukocyte Esterase Neg (Negative) 06/18/16 14:05 Urine WBC (Auto) 4.0 /HPF (0.0-6.0) 06/18/16 14:05 Urine RBC (Auto) 1.0 /HPF (0.0-6.0) 06/18/16 14:05 Urine Bacteria (Auto) 1+ /HPF (Negative) 06/18/16 14:05 Urine Mucus Few /HPF 06/18/16 14:05 Salicylates < 0.3 mg/dL (2.8-20.0) L 06/18/16 14:05 Urine Opiates Screen Presumptive negative 06/18/16 14:05 Urine Methadone Screen Presumptive negative 06/18/16 14:05 Acetaminophen < 15.0 ug/mL (10.0-30.0) 06/18/16 16:56 Ur Barbiturates Screen Presumptive negative 06/18/16 14:05 Ur Phencyclidine Scrn Presumptive negative 06/18/16 14:05 Ur Amphetamines Screen Presumptive negative 06/18/16 14:05 U Benzodiazepines Scrn Presumptive positive 06/18/16 14:05 Urine Cocaine Screen Presumptive negative 06/18/16 14:05 U Marijuana (THC) Screen Presumptive negative 06/18/16 14:05 Drugs of Abuse Note Disclamer 06/18/16 14:05 Plasma/Serum Alcohol 0.13 gm% (0-0.07) H 06/18/16 14:05
--- NOTE | 2016-06-21 13:36 | Progress Note ---
Subjective - Reason for Consult Consult date: 06/21/16 Reason for consult: psychiatric follow up - Chief Complaint Chief complaint: "I need to go home" Patient is a 31-year-old male admitted to the hospital after he overdosed on Valium, Celexa, and clonidine and also drank alcohol. He was unable to protect his airway and required intubation. He also had a central line placed which he still has. Now he is off the ventilator. He is perseverative and tangential regarding the reasons why he needs to go home. He repeatedly states that staff can check with his mother and other sources of information to verify the reasons why he should go home. He states he did not take the medications which he thought would react poorly with alcohol, including Ambien and Seroquel. Mental Status Exam - Vital signs Last Vital Signs Temp 98.0 F 06/21/16 12:16 Pulse 55 L 06/21/16 12:16 Resp 18 06/21/16 12:16 BP 108/67 06/21/16 12:16 Pulse Ox 97 06/21/16 12:16 - Exam Orientation: time, place, person Affect: anxious Mood: congruent with affect Thought content: other (perseverative about discharge) Thought Process: Circumstantial, Tangential Perceptions: none Speech: pressured Concentration: focused Motor activity: normal Level of consciousness: alert Memory: Intact Sleep Symptoms: None Interaction: cooperative Assessment and Plan Assessment: Overdose: Patient has minimal insight into the severity of his recent actions resulting in respiratory failure and intubation Recommendation: Transfer to inpatient psychiatric facility
--- NOTE | 2016-06-21 19:32 | Progress Note ---
Assessment and Plan Patient very uncooperative. Presently on room air. No acute respiratory distress.O2 satuaration 97%. - Patient Problems (1) Overdose Current Visit: Yes Status: Acute Qualifiers: Encounter type: initial encounter Injury intent: I Plan to address problem: Psychiatry consulted. (2) Respiratory failure Current Visit: Yes Status: Acute Qualifiers: Chronicity: acute Respiratory failure complication: hypoxia Qualified Code(s): J96.01 - Acute respiratory failure with hypoxia Plan to address problem: Patients respiratory failure improved. Patient presently on room air . O2 satuaration 97%. Subjective Date of service: 06/21/16 Principal diagnosis: Acute Respiratory Failure; Drug OD Interval history: Patient very uncooperative. Presently on room air. No acute respiratory distress.O2 satuaration 97%. Objective Vital Signs - 12hr 06/21/16 06/21/16 06/21/16 07:51 08:06 08:41 Temperature 97.6 F 97.8 F Pulse Rate 43 L Pulse Rate [ 54 L 57 L Right Radial] Respiratory 18 18 Rate Blood Pressure 94/53 97/53 [Right Arm] O2 Sat by Pulse 97 97 Oximetry 06/21/16 06/21/16 06/21/16 09:01 12:05 12:16 Temperature 97.1 F L 98.2 F 98.0 F Pulse Rate Pulse Rate [ 57 L 74 55 L Right Radial] Respiratory 18 20 18 Rate Blood Pressure 97/53 113/56 108/67 [Right Arm] O2 Sat by Pulse 97 97 Oximetry 06/21/16 06/21/16 06/21/16 13:35 14:31 17:32 Temperature 98.0 F 98.1 F 98.1 F Pulse Rate Pulse Rate [ 55 L 57 L 57 L Right Radial] Respiratory 18 18 18 Rate Blood Pressure 108/67 147/57 147/57 [Right Arm] O2 Sat by Pulse 97 97 97 Oximetry Constitutional: no acute distress, alert, agitated, other (Uncooperative.) Eyes: non-icteric ENT: oropharynx moist Neck: supple, no lymphadenopathy Ascultation: Bilateral: clear Cardiovascular: regular rate and rhythm Gastrointestinal: normoactive bowel sounds, soft, non-tender Integumentary: normal Extremities: no cyanosis, no edema Neurologic: unable to assess Psychiatric: anxious CBC and BMP: 06/21/16 06:53 06/21/16 06:53 ABG, PT/INR, D-dimer: ABG POC ABG pH 7.387 (7.35-7.45) 06/19/16 14:31 POC ABG pCO2 42.1 (35-45) 06/19/16 14:31 POC ABG pO2 97 (80-105) 06/19/16 14:31 POC ABG HCO3 25.3 06/19/16 14:31 POC ABG Total CO2 27 06/19/16 14:31 POC ABG O2 Sat 97 06/19/16 14:31 PT/INR, D-dimer PT 18.4 Sec. (12.2-14.9) H 06/18/16 17:05 INR 1.53 (0.87-1.13) H 06/18/16 17:05 Abnormal lab findings: Abnormal Labs 06/18/16 06/18/16 06/18/16 16:56 17:05 18:58 WBC RBC MCHC Plt Count [place] % (Auto) Seg Neutrophils % Seg Neuts % (Manual) Lymphocytes % (Manual) Seg Neutrophils # Man Lymphocytes # (Manual) PT 18.4 H INR 1.53 H POC ABG pO2 BUN 5 L Creatinine 0.6 L Glucose 164 H Lactic Acid 2.9 H* Calcium 7.2 L Magnesium ALT Total Protein Albumin 06/19/16 06/19/16 06/19/16 03:40 03:40 03:58 WBC 11.6 H RBC 5.14 H MCHC Plt Count [place] % (Auto) Seg Neutrophils % Seg Neuts % (Manual) 92.0 H Lymphocytes % (Manual) 5.0 L Seg Neutrophils # Man 10.7 H Lymphocytes # (Manual) 0.6 L PT INR POC ABG pO2 110 H BUN 5 L Creatinine 0.7 L Glucose 189 H Lactic Acid Calcium 7.5 L Magnesium ALT 72 H Total Protein 5.7 L Albumin 3.2 L 06/19/16 06/20/16 06/20/16 16:07 04:25 04:25 WBC RBC MCHC Plt Count 129 L [place] % (Auto) 7.7 H Seg Neutrophils % 72.7 H Seg Neuts % (Manual) Lymphocytes % (Manual) Seg Neutrophils # Man Lymphocytes # (Manual) PT INR POC ABG pO2 BUN 7 L Creatinine 0.5 L Glucose 136 H Lactic Acid Calcium 7.4 L Magnesium 1.5 L ALT Total Protein Albumin 06/21/16 06/21/16 06:53 06:53 WBC RBC MCHC 35 H Plt Count 112 L [place] % (Auto) Seg Neutrophils % Seg Neuts % (Manual) Lymphocytes % (Manual) Seg Neutrophils # Man Lymphocytes # (Manual) PT INR POC ABG pO2 BUN Creatinine 0.4 L Glucose Lactic Acid Calcium 7.3 L Magnesium ALT Total Protein Albumin
[2016-06-22 07:18] LABS: Basophils % (Auto) 0.5 % (0.0-1.8); Hematocrit 38.6 % (35.5-45.6); Hemoglobin 13.1 gm/dl (11.8-15.2); Mean Corpuscular HGB Conc 34 % (32-34); Mean Corpuscular Hemoglobin 30 pg (28-32); Mean Corpuscular Volume 87 fl (84-94); Platelet Count 132 K/mm3 (140-440); Red Blood Count 4.44 M/mm3 (3.65-5.03); Red Cell Distribution Width 13.6 % (13.2-15.2); White Blood Count 6.5 K/mm3 (4.5-11.0)
[2016-06-22 07:41] LABS: Anion Gap 16 mmol/L; Blood Urea Nitrogen 5 mg/dL (9-20); Calcium 7.4 mg/dL (8.4-10.2); Carbon Dioxide 29 mmol/L (22-30); Chloride 101.7 mmol/L (98-107); Glucose 75 mg/dL (75-100); Potassium 3.3 mmol/L (3.6-5.0); Sodium 143 mmol/L (137-145)
[2016-06-22] MEDS ORDERED: K-DUR PO ONE (08:01)
--- NOTE | 2016-06-22 08:32 | Progress Note ---
Subjective - Reason for Consult Consult date: 06/22/16 Reason for consult: Psychiatry Follow-up - Chief Complaint Chief complaint: "I have no idea why I am still here" Patient is a 31-year-old male admitted to the hospital after he overdosed on Valium, Celexa, and clonidine and also drank alcohol. He was unable to protect his airway and required intubation. Today patient is adamant about being discharged today and rescinding his 1013. He spoke about having a job interview next week and feel that [facility] is not keeping him informed. I informed him of his treatment plan and possible initiation of his home medications. Patient was calm and cooperative, but would interject during our discussion. He rate rate his anxiety 4/10, but reference his worries about not being able to attend a scheduled job interview next week. Patient acknowledged not knowing what caused him to be intubated. He denies SI/HI's at this time. Mental Status Exam - Vital signs Last Vital Signs Temp 97.9 F 06/22/16 06:17 Pulse 53 L 06/22/16 07:46 Resp 18 06/22/16 06:17 BP 102/59 06/22/16 06:17 Pulse Ox 95 06/22/16 00:01 - Exam Orientation: time, place, person Affect: normal, other Mood: appropriate Thought content: other (none) Thought Process: Intact Perceptions: none Speech: normal rate and pattern Concentration: other (intact) Motor activity: other (sitting up in bed) Level of consciousness: alert Memory: Intact Sleep Symptoms: None Interaction: cooperative Assessment and Plan Impression: Overdose: Patient has limited insight to what happened to him per this admission. He is adamant about wanting to be discharged. Per collateral information from his mother, the patient was in a "codependency relationship." She states, "This person is on heroin." Recommendation: Continue 1013 transfer to inpatient psychiatric facility. Started Lexapro 5 mg PO daily for depression and Vistaril 25 mg PO BID for anxiety.
[2016-06-22] MEDS: LOVENOX SUB-Q SCH (09:58)
--- NOTE | 2016-06-22 09:58 | Event Note ---
Date: 06/22/16 overall improved - will see prn at this point
[2016-06-22] MEDS: PEPCID PO SCH ×2 (09:59→21:11)
--- NOTE | 2016-06-22 13:47 | Discharge Summary ---
Providers - Providers Date of Admission: 06/18/16 16:23 Date of discharge: 06/23/16 Attending physician: JUAN M BRANDON MD 06/18/16 16:24 Consult to Physician [CONS] Urgent Consulting Provider: BENJAMIN AUGUSTE Reason For Exam: resp failure Notified:: yes 06/18/16 21:36 Consult to Mental Health [CONS] Routine Reason For Exam: Suicidal attempt Place consult to:: Notified:: yes If yes, spoke with:: violetta Primary care physician: [facility] Hospitalization Reason for admission: Overdose Condition: Critical Hospital course: Patient is a 31-year-old male brought to the hospital by EMS for overdose. As noted was found lethargic in the hallway complaining of overdose on clonidine and Valium, possibly citalopram. EMS verbally reports that overdose happened approximately 45 minutes prior to arrival. The patient endorses suicidality. Therefore was placed on 1013 upon arrival, the patient was somnolent, gurgling, did not appear to be protecting his airway. The patient was preoxygenated with 100% oxygen, received apical oxygenation, induced with ketamine, paralyzed with rocuronium and intubated by Dr Arteaga with 1 attempt with no obvious complications or difficulty. An emergent orogastric tube was then placed by the nursing staff, and he was given 100 g of charcoal with sorbitol. Given concern for hemodynamic instability in the context of clonidine overdose, an emergent right-sided central line wAS placed using ultrasound guidance with no complications, with one attempt. Nursing staff contact the [place] [facility], who made the following recommendations: Rashard from [employer] control states The medical baseball sewer hand unaware if Left bundle branch block on EKG is preexisting and that a QRS of 132 is of concern. Per Rashard he states the medical baseball sewer hand recommends to give pt 1 mEq/kg of bicarb IV Push to alkalinize. If the QRS of 132 is related to the Citalopram the QRS will narrow on monitor. If the QRS narrows, repeat bicarb 1 mEq/kg in 5-10 minutes. If QRS does not narrow, don't repeat bicarb dose. He states QT/QTc of 418/451 ms is not of concern unless greater than 500 ms. Pt needs serial EKGs every 2 hours. Assess for serotonin syndrome symptoms such as muscle rigidity and fever.. Pt needs baseline CPK to assess for rhabdomyolysis. Check hepatic and renal function baseline. If change in pt condition, repeat CPK, hepatic and renal function every 6-12 hours. Monitor electrolytes if EKG changes occur. Check pt tylenol level at baseline and 4 hours from baseline check. Read back and verified. Patient continued to improve or subsequently extubated and transferred to the medical floor mother remained at bedside at all times. Patient was followed by pulmonary and also by psychiatrist. All home medications were held and per psychiatry discomfort continued at the facility. Patient does have some bilateral lateral abnormalities which were corrected including a potassium of 3.3 and magnesium of 1.5. Clinically the patient has improved and is medically stable for transfer to inpatient psych. [facility] to find psych facility they'll accept the patient and was found psychiatry did review the patient again and at this time are rescended the hold. Patient will be discharged home per psychiatric recommendation. On my reexamination question of the patient he denied any homicidal ideation. He denies any suicidal ideation. * Acute hypoxic respiratory failure * Toxic metabolic encephalopathy * Drug overdose. * Wide QRS complex * Suicide attempt. * Hypokalemia * Hypomagnesmia * Fever. Sepsis Ruled/O * Hypertension. . Disposition: DISCHARGED TO HOME OR SELFCARE Time spent for discharge: 35 mins Core Measure Documentation - Palliative Care Palliative Care/ Comfort Measures: Not Applicable - Core Measures Any of the following diagnoses?: none - VTE Discharge Requirements Deep Vein Thrombosis/Pulmonary Embolism Present on Admission: No Exam - Physical Exam Narrative exam: VITAL SIGNS: Reviewed. GENERAL: The patient appeared well nourished and normally developed. Vital signs as documented. HEAD: No signs of head trauma. EYES: Pupils are equal. Extraocular motions intact. EARS: Hearing grossly intact. MOUTH: Oropharynx is normal. NECK: No adenopathy, no JVD. CHEST: Chest with clear breath sounds bilaterally. No wheezes, rales, or rhonchi. CARDIAC: Regular rate and rhythm. S1 and S2, without murmurs, gallops, or rubs. VASCULAR: No Edema. Peripheral pulses normal and equal in all extremities. ABDOMEN: Soft, without detectable tenderness. No sign of distention. No rebound or guarding, and no masses palpated. Bowel Sounds normal. MUSCULOSKELETAL: Good range of motion of all major joints. Extremities without clubbing, cyanosis or edema. NEUROLOGIC EXAM: Alert and oriented x 3. No focal sensory or strength deficits. Speech normal. Follows commands. PSYCHIATRIC: Mood normal. SKIN: No rash or lesions. - Constitutional Vitals: Temp Pulse Resp BP Pulse Ox 97.5 F L 90 24 121/74 84 06/22/16 12:58 06/22/16 12:58 06/22/16 12:58 06/22/16 12:58 06/22/16 12:58 Plan Activity: advance as tolerated, fall precautions Diet: low fat Special Instructions: record daily weights, record daily BP diary, record blood sugar diary Follow up with: PRIMARY CAREMD [Primary Care Provider] - 3-5 Days
--- NOTE | 2016-06-22 15:37 | Progress Note ---
Assessment and Plan Assessment and plan: Patient is a 31-year-old male brought to the hospital by EMS for overdose. As noted was found lethargic in the hallway complaining of overdose on clonidine and Valium, possibly citalopram. EMS verbally reports that overdose happened approximately 45 minutes prior to arrival. The patient endorses suicidality. Therefore was placed on 1013 upon arrival, the patient was somnolent, gurgling, did not appear to be protecting his airway. The patient was preoxygenated with 100% oxygen, received apical oxygenation, induced with ketamine, paralyzed with rocuronium and intubated by Dr Arteaga with 1 attempt with no obvious complications or difficulty. An emergent orogastric tube was then placed by the nursing staff, and he was given 100 g of charcoal with sorbitol. Given concern for hemodynamic instability in the context of clonidine overdose, an emergent right-sided central line wAS placed using ultrasound guidance with no complications, with one attempt. Nursing staff contact the [place] [facility], who made the following recommendations: [facility] The medical school secretary unaware if Left bundle branch block on EKG is preexisting and that a QRS of 132 is of concern. Per Rashard he states the medical school secretary recommends to give pt 1 mEq/kg of bicarb IV Push to alkalinize. If the QRS of 132 is related to the Citalopram the QRS will narrow on monitor. If the QRS narrows, repeat bicarb 1 mEq/kg in 5-10 minutes. If QRS does not narrow, don't repeat bicarb dose. He states QT/QTc of 418/451 ms is not of concern unless greater than 500 ms. Pt needs serial EKGs every 2 hours. Assess for serotonin syndrome symptoms such as muscle rigidity and fever.. Pt needs baseline CPK to assess for rhabdomyolysis. Check hepatic and renal function baseline. If change in pt condition, repeat CPK, hepatic and renal function every 6-12 hours. Monitor electrolytes if EKG changes occur. Check pt tylenol level at baseline and 4 hours from baseline check. Read back and verified. Patient continued to improve or subsequently extubated and transferred to the medical floor mother remained at bedside at all times. Patient was followed by pulmonary and also by psychiatrist. All home medications were held and per psychiatry discomfort continued at the facility. Patient does have some bilateral lateral abnormalities which were corrected including a potassium of 3.3 and magnesium of 1.5. Clinically the patient has improved and is medically stable for transfer to inpatient psych. * Acute hypoxic respiratory failure * Toxic metabolic encephalopathy * Drug overdose. * Wide QRS complex * Suicide attempt. * Hypokalemia * Hypomagnesmia * Fever. Sepsis Ruled/O * Hypertension. * H influenza- Sputum culture Plan: * He continues to improve clinically stable at this point off for discharge from my medical standpoint. * No indication if H influenza was treated. Patient has no respiratory symptoms at this time no fever. We'll monitor closely. * Discuss plan of care with the mother. I will hold off for continuing any medications at this time OF discharge. * DVT and GI prophylaxis * Replace electrolytes * Discussed with case management and discharge plan. * We'll DC off telemetry and DC central lines. . History Interval history: Patient seen and examined this morning in no acute distress, "I wonder lying in my neck". Denies any chest pain, nausea, vomiting, diarrhea No fever noted blood pressure controlled No adverse events reported to me by nursing staff Hospitalist Physical - Physical exam Narrative exam: VITAL SIGNS: Reviewed. GENERAL: The patient appeared well nourished and normally developed. Vital signs as documented. HEAD: No signs of head trauma. EYES: Pupils are equal. Extraocular motions intact. EARS: Hearing grossly intact. MOUTH: Oropharynx is normal. NECK: No adenopathy, no JVD. CHEST: Chest with clear breath sounds bilaterally. No wheezes, rales, or rhonchi. CARDIAC: Regular rate and rhythm. S1 and S2, without murmurs, gallops, or rubs. VASCULAR: No Edema. Peripheral pulses normal and equal in all extremities. ABDOMEN: Soft, without detectable tenderness. No sign of distention. No rebound or guarding, and no masses palpated. Bowel Sounds normal. MUSCULOSKELETAL: Good range of motion of all major joints. Extremities without clubbing, cyanosis or edema. NEUROLOGIC EXAM: Alert and oriented x 3. No focal sensory or strength deficits. Speech normal. Follows commands. PSYCHIATRIC: Mood normal. SKIN: No rash or lesions. - Constitutional Vitals: Temp Pulse Resp BP Pulse Ox 97.5 F L 90 24 121/74 84 06/22/16 12:58 06/22/16 12:58 06/22/16 12:58 06/22/16 12:58 06/22/16 12:58 General appearance: Present: no acute distress, well-nourished Results - Labs CBC & Chem 7: 06/22/16 06:04 06/22/16 06:04 Labs: Laboratory Last Values WBC 6.5 K/mm3 (4.5-11.0) 06/22/16 06:04 RBC 4.44 M/mm3 (3.65-5.03) 06/22/16 06:04 Hgb 13.1 gm/dl (11.8-15.2) 06/22/16 06:04 Hct 38.6 % (35.5-45.6) 06/22/16 06:04 MCV 87 fl (84-94) 06/22/16 06:04 MCH 30 pg (28-32) 06/22/16 06:04 MCHC 34 % (32-34) 06/22/16 06:04 RDW 13.6 % (13.2-15.2) 06/22/16 06:04 Plt Count 132 K/mm3 (140-440) L 06/22/16 06:04 Lymph % (Auto) 40.4 % (13.4-35.0) H 06/22/16 06:04 Person % (Auto) 6.7 % (0.0-7.3) 06/22/16 06:04 Eos % (Auto) 6.0 % (0.0-4.3) H 06/22/16 06:04 Baso % (Auto) 0.5 % (0.0-1.8) 06/22/16 06:04 Lymph # 2.6 K/mm3 (1.2-5.4) 06/22/16 06:04 Person # 0.4 K/mm3 (0.0-0.8) 06/22/16 06:04 Eos # 0.4 K/mm3 (0.0-0.4) 06/22/16 06:04 Baso # 0.0 K/mm3 (0.0-0.1) 06/22/16 06:04 Add Manual Diff Complete 06/19/16 03:40 Total Counted 100 06/19/16 03:40 Seg Neutrophils % 46.4 % (40.0-70.0) 06/22/16 06:04 Seg Neuts % (Manual) 92.0 % (40.0-70.0) H 06/19/16 03:40 Band Neutrophils % 0 % 06/19/16 03:40 Lymphocytes % (Manual) 5.0 % (13.4-35.0) L 06/19/16 03:40 Reactive Lymphs % (Man) 0 % 06/19/16 03:40 Monocytes % (Manual) 3.0 % (0.0-7.3) 06/19/16 03:40 Eosinophils % (Manual) 0 % (0.0-4.3) 06/19/16 03:40 Basophils % (Manual) 0 % (0.0-1.8) 06/19/16 03:40 Metamyelocytes % 0 % 06/19/16 03:40 Myelocytes % 0 % 06/19/16 03:40 Promyelocytes % 0 % 06/19/16 03:40 Blast Cells % 0 % 06/19/16 03:40 Nucleated RBC % Not Reportable 06/19/16 03:40 Seg Neutrophils # 3.0 K/mm3 (1.8-7.7) 06/22/16 06:04 Seg Neutrophils # Man 10.7 K/mm3 (1.8-7.7) H 06/19/16 03:40 Band Neutrophils # 0.0 K/mm3 06/19/16 03:40 Lymphocytes # (Manual) 0.6 K/mm3 (1.2-5.4) L 06/19/16 03:40 Abs React Lymphs (Man) 0.0 K/mm3 06/19/16 03:40 Monocytes # (Manual) 0.3 K/mm3 (0.0-0.8) 06/19/16 03:40 Eosinophils # (Manual) 0.0 K/mm3 (0.0-0.4) 06/19/16 03:40 Basophils # (Manual) 0.0 K/mm3 (0.0-0.1) 06/19/16 03:40 Metamyelocytes # 0.0 K/mm3 06/19/16 03:40 Myelocytes # 0.0 K/mm3 06/19/16 03:40 Promyelocytes # 0.0 K/mm3 06/19/16 03:40 Blast Cells # 0.0 K/mm3 06/19/16 03:40 WBC Morphology Not Reportable 06/19/16 03:40 Hypersegmented Neuts Not Reportable 06/19/16 03:40 Hyposegmented Neuts Not Reportable 06/19/16 03:40 Hypogranular Neuts Not Reportable 06/19/16 03:40 Smudge Cells Not Reportable 06/19/16 03:40 Toxic Granulation Not Reportable 06/19/16 03:40 Toxic Vacuolation Not Reportable 06/19/16 03:40 Dohle Bodies Not Reportable 06/19/16 03:40 Pelger-Huet Anomaly Not Reportable 06/19/16 03:40 Sam Rods Not Reportable 06/19/16 03:40 Platelet Estimate Appears normal 06/19/16 03:40 Clumped Platelets Not Reportable 06/19/16 03:40 Plt Clumps, EDTA Not Reportable 06/19/16 03:40 Large Platelets Not Reportable 06/19/16 03:40 Giant Platelets Not Reportable 06/19/16 03:40 Platelet Satelliting Not Reportable 06/19/16 03:40 Plt Morphology Comment Not Reportable 06/19/16 03:40 RBC Morphology Normal 06/19/16 03:40 Dimorphic RBCs Not Reportable 06/19/16 03:40 Polychromasia Not Reportable 06/19/16 03:40 Hypochromasia Not Reportable 06/19/16 03:40 Poikilocytosis Not Reportable 06/19/16 03:40 Anisocytosis Not Reportable 06/19/16 03:40 Microcytosis Not Reportable 06/19/16 03:40 Macrocytosis Not Reportable 06/19/16 03:40 Spherocytes Not Reportable 06/19/16 03:40 Pappenheimer Bodies Not Reportable 06/19/16 03:40 Sickle Cells Not Reportable 06/19/16 03:40 Target Cells Not Reportable 06/19/16 03:40 Tear Drop Cells Not Reportable 06/19/16 03:40 Ovalocytes Not Reportable 06/19/16 03:40 Helmet Cells Not Reportable 06/19/16 03:40 Vela-Leonia Bodies Not Reportable 06/19/16 03:40 Sandoval Rings Not Reportable 06/19/16 03:40 Alyson Cells Not Reportable 06/19/16 03:40 Bite Cells Not Reportable 06/19/16 03:40 Crenated Cell Not Reportable 06/19/16 03:40 Elliptocytes Not Reportable 06/19/16 03:40 Acanthocytes (Spur) Not Reportable 06/19/16 03:40 Rouleaux Not Reportable 06/19/16 03:40 Hemoglobin C Crystals Not Reportable 06/19/16 03:40 Schistocytes Not Reportable 06/19/16 03:40 Malaria parasites Not Reportable 06/19/16 03:40 Jai Bodies Not Reportable 06/19/16 03:40 Hem Pathologist Commnt No 06/19/16 03:40 PT 18.4 Sec. (12.2-14.9) H 06/18/16 17:05 INR 1.53 (0.87-1.13) H 06/18/16 17:05 APTT 29.9 Sec. (24.2-36.6) 06/18/16 17:05 POC ABG pH 7.387 (7.35-7.45) 06/19/16 14:31 POC ABG pCO2 42.1 (35-45) 06/19/16 14:31 POC ABG pO2 97 (80-105) 06/19/16 14:31 POC ABG HCO3 25.3 06/19/16 14:31 POC ABG Total CO2 27 06/19/16 14:31 POC ABG O2 Sat 97 06/19/16 14:31 POC ABG Base Excess 0 06/19/16 14:31 FiO2 30 % 06/19/16 14:31 Sodium 143 mmol/L (137-145) 06/22/16 06:04 Potassium 3.3 mmol/L (3.6-5.0) L 06/22/16 06:04 Chloride 101.7 mmol/L (98-107) 06/22/16 06:04 Carbon Dioxide 29 mmol/L (22-30) 06/22/16 06:04 Anion Gap 16 mmol/L 06/22/16 06:04 BUN 5 mg/dL (9-20) L 06/22/16 06:04 Creatinine 0.5 mg/dL (0.8-1.5) L 06/22/16 06:04 Estimated GFR > 60 ml/min 06/22/16 06:04 BUN/Creatinine Ratio 10.00 % 06/22/16 06:04 Glucose 75 mg/dL (75-100) 06/22/16 06:04 Lactic Acid 2.9 mmol/L (0.7-2.0) H* 06/18/16 16:56 Calcium 7.4 mg/dL (8.4-10.2) L 06/22/16 06:04 Phosphorus 2.7 mg/dL (2.5-4.5) 06/19/16 16:07 Magnesium 1.5 mg/dL (1.7-2.3) L 06/19/16 16:07 Total Bilirubin 0.6 mg/dL (0.1-1.2) 06/19/16 03:40 AST 30 units/L (5-40) 06/19/16 03:40 ALT 72 units/L (7-56) H 06/19/16 03:40 Alkaline Phosphatase 114 units/L (35-129) 06/19/16 03:40 Total Creatine Kinase 25 units/L (55-170) L 06/18/16 14:05 C-Reactive Protein 0.00 mg/dL (0.00-1.30) 06/19/16 16:07 Total Protein 5.7 g/dL (6.3-8.2) L 06/19/16 03:40 Albumin 3.2 g/dL (3.9-5) L 06/19/16 03:40 Albumin/Globulin Ratio 1.3 % 06/19/16 03:40 TSH 3.680 mlU/mL (0.270-4.200) 06/18/16 14:05 Urine Color Yellow (Yellow) 06/18/16 14:05 Urine Turbidity Clear (Clear) 06/18/16 14:05 Urine pH 6.0 (5.0-7.0) 06/18/16 14:05 Ur Specific Blachly 1.010 (1.003-1.030) 06/18/16 14:05 Urine Protein <15 mg/dl mg/dL (Negative) 06/18/16 14:05 Urine Glucose (UA) Neg mg/dL (Negative) 06/18/16 14:05 Urine Ketones Neg mg/dL (Negative) 06/18/16 14:05 Urine Blood Neg (Negative) 06/18/16 14:05 Urine Nitrite Neg (Negative) 06/18/16 14:05 Urine Bilirubin Neg (Negative) 06/18/16 14:05 Urine Urobilinogen < 2.0 mg/dL (<2.0) 06/18/16 14:05 Ur Leukocyte Esterase Neg (Negative) 06/18/16 14:05 Urine WBC (Auto) 4.0 /HPF (0.0-6.0) 06/18/16 14:05 Urine RBC (Auto) 1.0 /HPF (0.0-6.0) 06/18/16 14:05 Urine Bacteria (Auto) 1+ /HPF (Negative) 06/18/16 14:05 Urine Mucus Few /HPF 06/18/16 14:05 Salicylates < 0.3 mg/dL (2.8-20.0) L 06/18/16 14:05 Urine Opiates Screen Presumptive negative 06/18/16 14:05 Urine Methadone Screen Presumptive negative 06/18/16 14:05 Acetaminophen < 15.0 ug/mL (10.0-30.0) 06/18/16 16:56 Ur Barbiturates Screen Presumptive negative 06/18/16 14:05 Ur Phencyclidine Scrn Presumptive negative 06/18/16 14:05 Ur Amphetamines Screen Presumptive negative 06/18/16 14:05 U Benzodiazepines Scrn Presumptive positive 06/18/16 14:05 Urine Cocaine Screen Presumptive negative 06/18/16 14:05 U Marijuana (THC) Screen Presumptive negative 06/18/16 14:05 Drugs of Abuse Note Disclamer 06/18/16 14:05 Plasma/Serum Alcohol 0.13 gm% (0-0.07) H 06/18/16 14:05
[2016-06-22] MEDS ORDERED: VISTARIL PO SCH (20:00)
[2016-06-22] MEDS: LEXAPRO PO SCH (21:11)
[2016-06-22] MEDS: VISTARIL PO SCH (21:11)
[2016-06-22] MEDS ORDERED: AMBIEN PO ONE (22:40)
[2016-06-23 07:02] LABS: Basophils % (Auto) 0.5 % (0.0-1.8); Eosinophils % (Auto) 12.3 % (0.0-4.3); Hematocrit 39.9 % (35.5-45.6); Hemoglobin 13.3 gm/dl (11.8-15.2); Mean Corpuscular HGB Conc 33 % (32-34); Mean Corpuscular Hemoglobin 29 pg (28-32); Mean Corpuscular Volume 89 fl (84-94); Platelet Count 137 K/mm3 (140-440); Red Blood Count 4.51 M/mm3 (3.65-5.03); Red Cell Distribution Width 13.7 % (13.2-15.2); White Blood Count 7.3 K/mm3 (4.5-11.0)
[2016-06-23 07:13] LABS: Anion Gap 14 mmol/L; BUN/Creatinine Ratio 8.33; Blood Urea Nitrogen 5 mg/dL (9-20); Calcium 7.8 mg/dL (8.4-10.2); Carbon Dioxide 30 mmol/L (22-30); Chloride 100.9 mmol/L (98-107); Glucose 71 mg/dL (75-100); Sodium 141 mmol/L (137-145)
[2016-06-23] MEDS: LEXAPRO PO SCH (10:12)
[2016-06-23] MEDS: LOVENOX SUB-Q SCH (10:13)
[2016-06-23] MEDS: PEPCID PO SCH (10:13)
[2016-06-23] MEDS: VISTARIL PO SCH (10:14)
[2016-06-23 14:01] VITALS: BP 107/63
--- NOTE | 2016-06-23 16:30 | Progress Note ---
Subjective - Reason for Consult Reason for consult: psych consult - Chief Complaint Chief complaint: Patient is a 31-year-old male admitted to the hospital after he overdosed on Valium, Celexa, and clonidine and also drank alcohol. Patient was seen by me yesterday also with him and his mother. Patient continues to reiterate that he wasn't trying to harm himself and this was an accidental overdose- which was also confirmed by his mother. He denies any SI/HI/AH/VH. He states that he isn 't depressed. Denies any euphoria or psychosis. Patient states that he has identified many stressors that led to his poor decisions and name ways that he will address them. The foremost being his ex girlfriend on heroin and him and his mom evicting the person from the home. Patient is wanting to return to his outpt care. Per sitter no issues. Patient has noted several days of no thoughts of self harm- confirmed by his mother. Mental Status Exam - Vital signs Last Vital Signs Temp 98.3 F 06/23/16 13:45 Pulse 72 06/23/16 13:45 Resp 24 06/23/16 13:45 BP 107/63 06/23/16 13:45 Pulse Ox 84 06/23/16 13:45 - Exam Orientation: time, place, person Affect: normal Mood: appropriate Thought Process: Intact Perceptions: none Speech: normal rate and pattern Concentration: focused Motor activity: restless Level of consciousness: alert Memory: Intact Sleep Symptoms: Difficulty Falling Asleep Appetite: increased Mini mental status exam(if necessary): 24-30 Assessment and Plan Patient is a 31-year-old male admitted to the hospital after he overdosed on Valium, Celexa, and clonidine and also drank alcohol. Patient was seen by me yesterday also with him and his mother. Currently patient hasn't shown any acute risk of self harm or harm to others. His intent is to leave with his mother and they will remain together. He is talking about forward future goals and different coping mechanism he intends to work on when he leaves. We discussed importance of abstaining from addictive drugs and how they impact his life. Plan: depression- at this time patient is in no acute risk of self harm. Rescind 1013. Patient can follow up with his outpatient provider and continues psych meds as directed.
--- NOTE | 2016-06-23 16:32 | Event Note ---
Date: 06/23/16 please note. patient was discharged today with note done for today but unfortunatley dated for yesterday.
--- NOTE | 2016-06-23 16:34 | Progress Note ---
Assessment and Plan Assessment and plan: Patient is a 31-year-old male brought to the hospital by EMS for overdose. As noted was found lethargic in the hallway complaining of overdose on clonidine and Valium, possibly citalopram. EMS verbally reports that overdose happened approximately 45 minutes prior to arrival. The patient endorses suicidality. Therefore was placed on 1013 upon arrival, the patient was somnolent, gurgling, did not appear to be protecting his airway. The patient was preoxygenated with 100% oxygen, received apical oxygenation, induced with ketamine, paralyzed with rocuronium and intubated by Dr Arteaga with 1 attempt with no obvious complications or difficulty. An emergent orogastric tube was then placed by the nursing staff, and he was given 100 g of charcoal with sorbitol. Given concern for hemodynamic instability in the context of clonidine overdose, an emergent right-sided central line wAS placed using ultrasound guidance with no complications, with one attempt. Nursing staff contact the [place] [facility], who made the following recommendations: [facility] The medical physician assistant certified unaware if Left bundle branch block on EKG is preexisting and that a QRS of 132 is of concern. Per Rashard he states the medical physician assistant certified recommends to give pt 1 mEq/kg of bicarb IV Push to alkalinize. If the QRS of 132 is related to the Citalopram the QRS will narrow on monitor. If the QRS narrows, repeat bicarb 1 mEq/kg in 5-10 minutes. If QRS does not narrow, don't repeat bicarb dose. He states QT/QTc of 418/451 ms is not of concern unless greater than 500 ms. Pt needs serial EKGs every 2 hours. Assess for serotonin syndrome symptoms such as muscle rigidity and fever.. Pt needs baseline CPK to assess for rhabdomyolysis. Check hepatic and renal function baseline. If change in pt condition, repeat CPK, hepatic and renal function every 6-12 hours. Monitor electrolytes if EKG changes occur. Check pt tylenol level at baseline and 4 hours from baseline check. Read back and verified. Patient continued to improve or subsequently extubated and transferred to the medical floor mother remained at bedside at all times. Patient was followed by pulmonary and also by psychiatrist. All home medications were held and per psychiatry discomfort continued at the facility. Patient does have some bilateral lateral abnormalities which were corrected including a potassium of 3.3 and magnesium of 1.5. Clinically the patient has improved and is medically stable for transfer to inpatient psych. * Acute hypoxic respiratory failure * Toxic metabolic encephalopathy * Drug overdose. * Wide QRS complex * Suicide attempt. * Hypokalemia * Hypomagnesmia * Fever. Sepsis Ruled/O * Hypertension. * H influenza- Sputum culture Plan: * discharge to home. please see discharge summary History Interval history: Patient seen and examined this morning in no acute distress, Denies any chest pain, nausea, vomiting, diarrhea No fever noted blood pressure controlled No adverse events reported to me by nursing staff Hospitalist Physical - Physical exam Narrative exam: VITAL SIGNS: Reviewed. GENERAL: The patient appeared well nourished and normally developed. Vital signs as documented. HEAD: No signs of head trauma. EYES: Pupils are equal. Extraocular motions intact. EARS: Hearing grossly intact. MOUTH: Oropharynx is normal. NECK: No adenopathy, no JVD. CHEST: Chest with clear breath sounds bilaterally. No wheezes, rales, or rhonchi. CARDIAC: Regular rate and rhythm. S1 and S2, without murmurs, gallops, or rubs. VASCULAR: No Edema. Peripheral pulses normal and equal in all extremities. ABDOMEN: Soft, without detectable tenderness. No sign of distention. No rebound or guarding, and no masses palpated. Bowel Sounds normal. MUSCULOSKELETAL: Good range of motion of all major joints. Extremities without clubbing, cyanosis or edema. NEUROLOGIC EXAM: Alert and oriented x 3. No focal sensory or strength deficits. Speech normal. Follows commands. PSYCHIATRIC: Mood normal. SKIN: No rash or lesions. - Constitutional Vitals: Temp Pulse Resp BP Pulse Ox 98.3 F 72 24 107/63 84 06/23/16 13:45 06/23/16 13:45 06/23/16 13:45 06/23/16 13:45 06/23/16 13:45 General appearance: Present: no acute distress, well-nourished Results - Labs CBC & Chem 7: 06/23/16 05:21 06/23/16 05:21 Labs: Laboratory Last Values WBC 7.3 K/mm3 (4.5-11.0) 06/23/16 05:21 RBC 4.51 M/mm3 (3.65-5.03) 06/23/16 05:21 Hgb 13.3 gm/dl (11.8-15.2) 06/23/16 05:21 Hct 39.9 % (35.5-45.6) 06/23/16 05:21 MCV 89 fl (84-94) 06/23/16 05:21 MCH 29 pg (28-32) 06/23/16 05:21 MCHC 33 % (32-34) 06/23/16 05:21 RDW 13.7 % (13.2-15.2) 06/23/16 05:21 Plt Count 137 K/mm3 (140-440) L 06/23/16 05:21 Lymph % (Auto) 39.0 % (13.4-35.0) H 06/23/16 05:21 Ceiba % (Auto) 6.6 % (0.0-7.3) 06/23/16 05:21 Eos % (Auto) 12.3 % (0.0-4.3) H 06/23/16 05:21 Baso % (Auto) 0.5 % (0.0-1.8) 06/23/16 05:21 Lymph # 2.8 K/mm3 (1.2-5.4) 06/23/16 05:21 Ceiba # 0.5 K/mm3 (0.0-0.8) 06/23/16 05:21 Eos # 0.9 K/mm3 (0.0-0.4) H 06/23/16 05:21 Baso # 0.0 K/mm3 (0.0-0.1) 06/23/16 05:21 Add Manual Diff Complete 06/19/16 03:40 Total Counted 100 06/19/16 03:40 Seg Neutrophils % 41.6 % (40.0-70.0) 06/23/16 05:21 Seg Neuts % (Manual) 92.0 % (40.0-70.0) H 06/19/16 03:40 Band Neutrophils % 0 % 06/19/16 03:40 Lymphocytes % (Manual) 5.0 % (13.4-35.0) L 06/19/16 03:40 Reactive Lymphs % (Man) 0 % 06/19/16 03:40 Monocytes % (Manual) 3.0 % (0.0-7.3) 06/19/16 03:40 Eosinophils % (Manual) 0 % (0.0-4.3) 06/19/16 03:40 Basophils % (Manual) 0 % (0.0-1.8) 06/19/16 03:40 Metamyelocytes % 0 % 06/19/16 03:40 Myelocytes % 0 % 06/19/16 03:40 Promyelocytes % 0 % 06/19/16 03:40 Blast Cells % 0 % 06/19/16 03:40 Nucleated RBC % Not Reportable 06/19/16 03:40 Seg Neutrophils # 3.0 K/mm3 (1.8-7.7) 06/23/16 05:21 Seg Neutrophils # Man 10.7 K/mm3 (1.8-7.7) H 06/19/16 03:40 Band Neutrophils # 0.0 K/mm3 06/19/16 03:40 Lymphocytes # (Manual) 0.6 K/mm3 (1.2-5.4) L 06/19/16 03:40 Abs React Lymphs (Man) 0.0 K/mm3 06/19/16 03:40 Monocytes # (Manual) 0.3 K/mm3 (0.0-0.8) 06/19/16 03:40 Eosinophils # (Manual) 0.0 K/mm3 (0.0-0.4) 06/19/16 03:40 Basophils # (Manual) 0.0 K/mm3 (0.0-0.1) 06/19/16 03:40 Metamyelocytes # 0.0 K/mm3 06/19/16 03:40 Myelocytes # 0.0 K/mm3 06/19/16 03:40 Promyelocytes # 0.0 K/mm3 06/19/16 03:40 Blast Cells # 0.0 K/mm3 06/19/16 03:40 WBC Morphology Not Reportable 06/19/16 03:40 Hypersegmented Neuts Not Reportable 06/19/16 03:40 Hyposegmented Neuts Not Reportable 06/19/16 03:40 Hypogranular Neuts Not Reportable 06/19/16 03:40 Smudge Cells Not Reportable 06/19/16 03:40 Toxic Granulation Not Reportable 06/19/16 03:40 Toxic Vacuolation Not Reportable 06/19/16 03:40 Dohle Bodies Not Reportable 06/19/16 03:40 Pelger-Huet Anomaly Not Reportable 06/19/16 03:40 Sam Rods Not Reportable 06/19/16 03:40 Platelet Estimate Appears normal 06/19/16 03:40 Clumped Platelets Not Reportable 06/19/16 03:40 Plt Clumps, EDTA Not Reportable 06/19/16 03:40 Large Platelets Not Reportable 06/19/16 03:40 Giant Platelets Not Reportable 06/19/16 03:40 Platelet Satelliting Not Reportable 06/19/16 03:40 Plt Morphology Comment Not Reportable 06/19/16 03:40 RBC Morphology Normal 06/19/16 03:40 Dimorphic RBCs Not Reportable 06/19/16 03:40 Polychromasia Not Reportable 06/19/16 03:40 Hypochromasia Not Reportable 06/19/16 03:40 Poikilocytosis Not Reportable 06/19/16 03:40 Anisocytosis Not Reportable 06/19/16 03:40 Microcytosis Not Reportable 06/19/16 03:40 Macrocytosis Not Reportable 06/19/16 03:40 Spherocytes Not Reportable 06/19/16 03:40 Pappenheimer Bodies Not Reportable 06/19/16 03:40 Sickle Cells Not Reportable 06/19/16 03:40 Target Cells Not Reportable 06/19/16 03:40 Tear Drop Cells Not Reportable 06/19/16 03:40 Ovalocytes Not Reportable 06/19/16 03:40 Helmet Cells Not Reportable 06/19/16 03:40 Vela-Blair Bodies Not Reportable 06/19/16 03:40 Beaumont Rings Not Reportable 06/19/16 03:40 Senatobia Cells Not Reportable 06/19/16 03:40 Bite Cells Not Reportable 06/19/16 03:40 Crenated Cell Not Reportable 06/19/16 03:40 Elliptocytes Not Reportable 06/19/16 03:40 Acanthocytes (Spur) Not Reportable 06/19/16 03:40 Rouleaux Not Reportable 06/19/16 03:40 Hemoglobin C Crystals Not Reportable 06/19/16 03:40 Schistocytes Not Reportable 06/19/16 03:40 Malaria parasites Not Reportable 06/19/16 03:40 Jai Bodies Not Reportable 06/19/16 03:40 Hem Pathologist Commnt No 06/19/16 03:40 PT 18.4 Sec. (12.2-14.9) H 06/18/16 17:05 INR 1.53 (0.87-1.13) H 06/18/16 17:05 APTT 29.9 Sec. (24.2-36.6) 06/18/16 17:05 POC ABG pH 7.387 (7.35-7.45) 06/19/16 14:31 POC ABG pCO2 42.1 (35-45) 06/19/16 14:31 POC ABG pO2 97 (80-105) 06/19/16 14:31 POC ABG HCO3 25.3 06/19/16 14:31 POC ABG Total CO2 27 06/19/16 14:31 POC ABG O2 Sat 97 06/19/16 14:31 POC ABG Base Excess 0 06/19/16 14:31 FiO2 30 % 06/19/16 14:31 Sodium 141 mmol/L (137-145) 06/23/16 05:21 Potassium 4.0 mmol/L (3.6-5.0) D 06/23/16 05:21 Chloride 100.9 mmol/L (98-107) 06/23/16 05:21 Carbon Dioxide 30 mmol/L (22-30) 06/23/16 05:21 Anion Gap 14 mmol/L 06/23/16 05:21 BUN 5 mg/dL (9-20) L 06/23/16 05:21 Creatinine 0.6 mg/dL (0.8-1.5) L 06/23/16 05:21 Estimated GFR > 60 ml/min 06/23/16 05:21 BUN/Creatinine Ratio 8.33 % 06/23/16 05:21 Glucose 71 mg/dL (75-100) L 06/23/16 05:21 Lactic Acid 2.9 mmol/L (0.7-2.0) H* 06/18/16 16:56 Calcium 7.8 mg/dL (8.4-10.2) L 06/23/16 05:21 Phosphorus 2.7 mg/dL (2.5-4.5) 06/19/16 16:07 Magnesium 1.5 mg/dL (1.7-2.3) L 06/19/16 16:07 Total Bilirubin 0.6 mg/dL (0.1-1.2) 06/19/16 03:40 AST 30 units/L (5-40) 06/19/16 03:40 ALT 72 units/L (7-56) H 06/19/16 03:40 Alkaline Phosphatase 114 units/L (35-129) 06/19/16 03:40 Total Creatine Kinase 25 units/L (55-170) L 06/18/16 14:05 C-Reactive Protein 0.00 mg/dL (0.00-1.30) 06/19/16 16:07 Total Protein 5.7 g/dL (6.3-8.2) L 06/19/16 03:40 Albumin 3.2 g/dL (3.9-5) L 06/19/16 03:40 Albumin/Globulin Ratio 1.3 % 06/19/16 03:40 TSH 3.680 mlU/mL (0.270-4.200) 06/18/16 14:05 Urine Color Yellow (Yellow) 06/18/16 14:05 Urine Turbidity Clear (Clear) 06/18/16 14:05 Urine pH 6.0 (5.0-7.0) 06/18/16 14:05 Ur Specific Shipman 1.010 (1.003-1.030) 06/18/16 14:05 Urine Protein <15 mg/dl mg/dL (Negative) 06/18/16 14:05 Urine Glucose (UA) Neg mg/dL (Negative) 06/18/16 14:05 Urine Ketones Neg mg/dL (Negative) 06/18/16 14:05 Urine Blood Neg (Negative) 06/18/16 14:05 Urine Nitrite Neg (Negative) 06/18/16 14:05 Urine Bilirubin Neg (Negative) 06/18/16 14:05 Urine Urobilinogen < 2.0 mg/dL (<2.0) 06/18/16 14:05 Ur Leukocyte Esterase Neg (Negative) 06/18/16 14:05 Urine WBC (Auto) 4.0 /HPF (0.0-6.0) 06/18/16 14:05 Urine RBC (Auto) 1.0 /HPF (0.0-6.0) 06/18/16 14:05 Urine Bacteria (Auto) 1+ /HPF (Negative) 06/18/16 14:05 Urine Mucus Few /HPF 06/18/16 14:05 Salicylates < 0.3 mg/dL (2.8-20.0) L 06/18/16 14:05 Urine Opiates Screen Presumptive negative 06/18/16 14:05 Urine Methadone Screen Presumptive negative 06/18/16 14:05 Acetaminophen < 15.0 ug/mL (10.0-30.0) 06/18/16 16:56 Ur Barbiturates Screen Presumptive negative 06/18/16 14:05 Ur Phencyclidine Scrn Presumptive negative 06/18/16 14:05 Ur Amphetamines Screen Presumptive negative 06/18/16 14:05 U Benzodiazepines Scrn Presumptive positive 06/18/16 14:05 Urine Cocaine Screen Presumptive negative 06/18/16 14:05 U Marijuana (THC) Screen Presumptive negative 06/18/16 14:05 Drugs of Abuse Note Disclamer 06/18/16 14:05 Plasma/Serum Alcohol 0.13 gm% (0-0.07) H 06/18/16 14:05
== END 2016-06-23 16:48 | disposition home or self-care (01) | DRG 917 ==
LOC: ED 13:39 → CC1 16:23 → EEVIPCON 16:23 → CC1 20:03 → 4A 06-20 20:54
PROVIDERS: ADMIT Internal Medicine; ATTEND Internal Medicine
PROC: 4A033R1 Measurement of Arterial Saturation, Peripheral, Percutaneous Approach (ICD-10-PCS; 2016-06-18)
PROC: 0BH17EZ Insertion of Endotracheal Airway into Trachea, Via Natural or Artificial Opening (ICD-10-PCS; 2016-06-18)
PROC: 0D9670Z Drainage of Stomach with Drainage Device, Via Natural or Artificial Opening (ICD-10-PCS; 2016-06-18)
PROC: 05HM33Z Insertion of Infusion Device into Right Internal Jugular Vein, Percutaneous Approach (ICD-10-PCS; 2016-06-18)
PROC: B543ZZA Ultrasonography of Right Jugular Veins, Guidance (ICD-10-PCS; 2016-06-18)
PROC: 5A1935Z Respiratory Ventilation, Less than 24 Consecutive Hours (ICD-10-PCS; principal; 2016-06-19)
PROC: 4A033R1 Measurement of Arterial Saturation, Peripheral, Percutaneous Approach (ICD-10-PCS; 2016-06-19)
DX: T46.5X2A Poisoning by other antihypertensive drugs, intentional self-harm, initial encounter (principal); G92 Toxic encephalopathy; J96.01 Acute respiratory failure with hypoxia; T42.4X2A Poisoning by benzodiazepines, intentional self-harm, initial encounter; I10 Essential (primary) hypertension; E66.9 Obesity, unspecified; Z68.36 Body mass index [BMI] 36.0-36.9, adult; E87.6 Hypokalemia; E83.42 Hypomagnesemia; F32.9 Major depressive disorder, single episode, unspecified; F10.10 Alcohol abuse, uncomplicated; I25.10 Atherosclerotic heart disease of native coronary artery without angina pectoris; G47.00 Insomnia, unspecified; F41.9 Anxiety disorder, unspecified; Z87.891 Personal history of nicotine dependence; Z88.8 Allergy status to other drugs, medicaments and biological substances; Y92.89 Other specified places as the place of occurrence of the external cause; Z82.49 Family history of ischemic heart disease and other diseases of the circulatory system
CPT/HCPCS: 36415; 36600; 70450; 71010; 72125; 80048; 80053; 80307; 80320; 81001; 82140; 82550; 82803; 83735; 84100; 84443; 85007; 85025; 85610; 85730; 86140; 87040; 87070; 87185; 87205; 93005; 93010; 94002; 94003; 96365; 96375; G0480; J0696; J1100; J1650; J3010; J3360; J3370; J3475; J3480; J7030; J7040; J7042; Q0177

== ENCOUNTER 2017-06-06 11:08 | Emergency (ER) | payer OTHER ==
[2017-06-06] MEDS ORDERED: NACL 0.9% 500 ML 500 ML IV ONE (12:20)
[2017-06-06] MEDS ORDERED: NACL 0.9% 1000 ML 1,000 ML ONE (12:20)
--- NOTE | 2017-06-06 12:26 | Emergency Department Report ---
ED General Adult HPI - General Chief complaint: Weakness Stated complaint: ALCOHOL WITHDRAWL/LBP Time Seen by Provider: 06/06/17 11:40 Source: patient Mode of arrival: Stretcher Limitations: No Limitations - History of Present Illness Initial comments: Patient is 32 old male history of congestive heart failure with ejection fraction of 10%. Patient brought by EMS for evaluation of generalized weakness. Patient initial blood pressure was 60/32. Patient is alert and oriented 3 on arrival to the ER continued to be his oxygen saturation is 100% on room air. Patient denied any suicidal attempt as his previous history indicated. Patient was just released from [facility] 4 days ago for CHF. He informed me that Dr. Pepe is his doctor. Patient denied any fever, chest pain , abdominal pain, nausea or vomiting. Patient is able to maintain his airway and his oxygen saturation. I immediately placed a right subclavian central line because EMS and nurse's Jorden or unable to get an access. - Related Data Home Medications Medication Instructions Recorded Confirmed Last Taken Quetiapine Fumarate [SEROquel XR] 600 mg PO QHS 06/22/16 06/06/17 06/05/17 Colchicine [Colcrys] 0.6 mg PO DAILY 06/06/17 06/06/17 06/05/17 Digoxin [Lanoxin] 0.125 mg PO DAILY 06/06/17 06/06/17 06/05/17 Folic Acid [Folvite] 1 mg PO QDAY 06/06/17 06/06/17 06/05/17 Lisinopril [Zestril] 5 mg PO QDAY 06/06/17 06/06/17 06/05/17 Multivitamin [Multiple Vitamins] 1 each PO DAILY 06/06/17 06/06/17 06/05/17 Spironolactone [Aldactone] 25 mg PO QDAY 06/06/17 06/06/17 06/05/17 Torsemide [Demadex] 40 mg PO DAILY 06/06/17 06/06/17 06/05/17 Venlafaxine HCl [Venlafaxine ER] 150 mg PO QDAY 06/06/17 06/06/17 06/05/17 Zolpidem Tartrate [Ambien CR] 12.5 mg PO QHS 06/06/17 06/06/17 06/05/17 Allergies Allergy/AdvReac Type Severity Reaction Status Date / Time NSAIDS (Non-Steroidal AdvReac Unknown Verified 06/18/16 19:28 Anti-Inflamma ED Review of Systems ROS: Stated complaint: ALCOHOL WITHDRAWL/LBP Other details as noted in HPI Comment: All other systems reviewed and negative Constitutional: denies: chills, fever Respiratory: denies: cough, orthopnea, shortness of breath, SOB with exertion Cardiovascular: palpitations. denies: chest pain Gastrointestinal: denies: abdominal pain, nausea, vomiting Neurological: denies: headache, weakness, numbness, paresthesias ED Past Medical Hx - Past Medical History Hx Hypertension: Yes Hx Congestive Heart Failure: Yes Hx Diabetes: No Hx Psychiatric Treatment: Yes Hx Asthma: No Hx COPD: No Hx HIV: No Additional medical history: previous suicide attempts - Surgical History Past Surgical History?: No - Social History Smoking Status: Current Every Day Smoker Substance Use Type: Alcohol - Medications Home Medications: Home Medications Medication Instructions Recorded Confirmed Last Taken Type Quetiapine Fumarate [SEROquel XR] 600 mg PO QHS 06/22/16 06/06/17 06/05/17 History Colchicine [Colcrys] 0.6 mg PO DAILY 06/06/17 06/06/17 06/05/17 History Digoxin [Lanoxin] 0.125 mg PO DAILY 06/06/17 06/06/17 06/05/17 History Folic Acid [Folvite] 1 mg PO QDAY 06/06/17 06/06/17 06/05/17 History Lisinopril [Zestril] 5 mg PO QDAY 06/06/17 06/06/17 06/05/17 History Multivitamin [Multiple Vitamins] 1 each PO DAILY 06/06/17 06/06/17 06/05/17 History Spironolactone [Aldactone] 25 mg PO QDAY 06/06/17 06/06/17 06/05/17 History Torsemide [Demadex] 40 mg PO DAILY 06/06/17 06/06/17 06/05/17 History Venlafaxine HCl [Venlafaxine ER] 150 mg PO QDAY 06/06/17 06/06/17 06/05/17 History Zolpidem Tartrate [Ambien CR] 12.5 mg PO QHS 06/06/17 06/06/17 06/05/17 History ED Physical Exam - General Limitations: No Limitations General appearance: alert, in no apparent distress - Head Head exam: Present: atraumatic, normocephalic, normal inspection - Eye Eye exam: Present: normal appearance - ENT ENT exam: Present: normal exam, mucous membranes dry - Neck Neck exam: Present: normal inspection, full ROM. Absent: tenderness - Respiratory Respiratory exam: Present: normal lung sounds bilaterally, decreased breath sounds. Absent: respiratory distress, wheezes, rales, rhonchi, prolonged expiratory - Cardiovascular Cardiovascular Exam: Present: tachycardia - GI/Abdominal GI/Abdominal exam: Present: soft, normal bowel sounds. Absent: distended, tenderness, guarding, rebound, rigid, organomegaly, mass, bruit, pulsatile mass - Extremities Exam Extremities exam: Present: normal inspection, full ROM, normal capillary refill - Back Exam Back exam: Present: normal inspection, full ROM. Absent: CVA tenderness (L) - Neurological Exam Neurological exam: Present: alert, oriented X3, CN II-XII intact, normal gait - Skin Skin exam: Present: warm, dry, normal color ED Course Vital Signs 06/06/17 06/06/17 06/06/17 11:30 13:56 15:33 Temperature 97.8 F Pulse Rate 122 H 111 H 114 H Respiratory 16 16 16 Rate Blood Pressure 79/41 Blood Pressure 66/34 95/47 [Left] O2 Sat by Pulse 97 99 93 Oximetry - Reevaluation(s) Reevaluation #1: 06/06/17 15:03 Patient and family requested patient to be transferred to [facility]. I already spoke to transfer center at [facility] and waiting for call back. Reevaluation #2: 06/06/17 15:[address] Henriquez from [facility] ICU. - Central Line Placement Right SC Consent Obtained: verbal consent Time Out Performed: Yes Patient Placed on Monitor/Pulse Ox: Yes MD Prep: mask, gown, gloves Central Line Prep: Povidone-Iodine 1%, Chlorhexidine scrub, sterile drapes applied Local Anesthesia Used: Lidocaine 2% Amount of Anesthesia Used (mls): 5 Central Line Lumen Inserted: triple Bloods Obtained for Lab: Yes Central Line Position: good blood return, all ports aspirated, flus, sutured in place with 2-0 Dressing Applied: Tegaderm, sterile gauze/tape Post Procedure X-Ray: tip of catheter in good p Patient Tolerated Procedure: well, no complications Complications: none ED Medical Decision Making - Lab Data Result diagrams: 06/06/17 Unknown 06/06/17 12:21 - EKG Data -: EKG Interpreted by Me EKG shows normal: sinus rhythm Rate: tachycardia - EKG Data 06/06/17 13:44 Left bundle branch block when compared to EKG on 06/18/2016, this is a new left bundle-branch block. - Radiology Data Radiology results: report reviewed Referring Physician: MARIANA THOMPSON Patient Name: LAURITA PALOMARES Date of : 1985 Sex: Male Report Date: 2017-06-06 Report Status: Finalized Findings [facility] [address] [place] [address] XRay Report Signed Patient: LAURITA PALOMARES MR#: [id number] : 1985 Acct:[id number] Age/Sex: 32 / M ADM Date: 06/06/17 Loc: ED Attending Dr: Ordering Physician: MARIANA THOMPSON Date of Service: 06/06/17 Procedure(s): XR chest 1V ap Accession Number(s): [id number] cc: MARIANA THOMPSON Fluoro Time In Minutes: Single view chest: Compared to . History: Fever and sepsis. Central line placement. Findings: Cardiomegaly. Trachea is midline. No consolidation, pneumothorax or pleural effusion. Tip of right venous catheter in mid superior vena cava. Impression: Tip of right venous catheter in superior vena cava. No pneumothorax. Transcribed By: PTP Dictated By: JORJE LUONG MD Electronically Authenticated By: JORJE LUONG MD Signed Date/Time: 06/06/17 1303 DD/ 1302 TD/TT: 06/06/17 1303 - Medical Decision Making Patient obviously presenting with septic shock with a low blood pressure. At this moment clear source of infection as well as urine and chest x-ray was normal for acute finding and his abdomen is soft nontender, I believe the source is most likely from his recent central line that he had so I will add vancomycin to antibiotic. Critical Care Time: Yes Critical care time in (mins) excluding proc time.: 45 Critical care attestation.: If time is entered above; I have spent that time in minutes in the direct care of this critically ill patient, excluding procedure time. ED Disposition Clinical Impression: Septic shock, CHF (congestive heart failure) Disposition: [id number]/[place]-[id number] ANOTHER TYPE [facility]ARE Is pt being admited?: No Condition: Stable Referrals: PRIMARY CARE, [Primary Care Provider] - 3-5 Days
[2017-06-06] MEDS ORDERED: ZOSYN/NS 4.5GM/100ML 4.5 GM/100 ML VIAL IV ONE (13:00)
[2017-06-06 13:09] LABS: Hematocrit TNR % (35.5-45.6); Hemoglobin TNR gm/dl (11.8-15.2); Mean Corpuscular HGB Conc TNR % (32-34); Mean Corpuscular Hemoglobin TNR pg (28-32); Mean Corpuscular Volume TNR fl (84-94); Mean Platelet Volume TNR fl (6-12); Platelet Count TNR K/mm3 (140-440); Red Blood Count TNR M/mm3 (3.65-5.03); Red Cell Distribution Width TNR % (13.2-15.2)
[2017-06-06 13:10] LABS: Basophils # (Auto) TNR K/mm3 (0.0-0.1); Basophils % (Auto) TNR % (0.0-1.8); Eosinophils # (Auto) TNR K/mm3 (0.0-0.4); Eosinophils % (Auto) TNR % (0.0-4.3); Lymphocytes # (Auto) TNR K/mm3 (1.2-5.4); Lymphocytes % (Auto) TNR % (13.4-35.0); Monocytes # (Auto) TNR K/mm3 (0.0-0.8); Monocytes % (Auto) TNR % (0.0-7.3)
--- NOTE | 2017-06-06 13:22 | XRay Report ---
Single view chest: Compared to . History: Fever and sepsis. Central line placement. Findings: Cardiomegaly. Trachea is midline. No consolidation, pneumothorax or pleural effusion. Tip of right venous catheter in mid superior vena cava. Impression: Tip of right venous catheter in superior vena cava. No pneumothorax.
[2017-06-06 14:03] LABS: Calcium 8.2 mg/dL (8.4-10.2)
[2017-06-06 14:26] LABS: Basophils % (Auto) 0.1 % (0.0-1.8); Hematocrit 36.2 % (35.5-45.6); Hemoglobin 12.5 gm/dl (11.8-15.2); Lymphocytes % (Auto) 6.5 % (13.4-35.0); Mean Corpuscular HGB Conc 35 % (32-34); Mean Corpuscular Hemoglobin 31 pg (28-32); Mean Corpuscular Volume 90 fl (84-94); Monocytes # (Auto) 0.6 K/mm3 (0.0-0.8); Monocytes % (Auto) 4.4 % (0.0-7.3); Platelet Count 239 K/mm3 (140-440); Red Blood Count 4.04 M/mm3 (3.65-5.03); Red Cell Distribution Width 14.6 % (13.2-15.2)
[2017-06-06 14:28] LABS: Chol/HDL Ratio 1.22 %
[2017-06-06 14:52] LABS: Bilirubin,Urine NEG (Negative); Blood,Urine NEG (Negative); Color,Urine Yellow (Yellow); Mucus,Urine 2+ /HPF; Protein,Urine <15 mg/dL mg/dL (Negative); Urobilinogen,Urine < 2.0 mg/dL (<2.0)
[2017-06-06] MEDS ORDERED: LEVOPHED DRIP 4 MG/NS 250 ML 4 MG/250 ML BAG IV SCH (15:00)
[2017-06-06] MEDS ORDERED: NACL 0.9% 1000 ML 1,000 ML IV ONE ×2 (15:21)
[2017-06-06 15:34] VITALS: BP 95/47
[2017-06-06] MEDS ORDERED: VANCOMYCIN/0.45 NS 1 GM/250 ML 1 GM/250 ML BAG IV ONE (16:15)
== END 2017-06-06 16:30 | disposition other institution (70) ==
LOC: ED 11:08
DX: I11.0 Hypertensive heart disease with heart failure (principal); R65.21 Severe sepsis with septic shock; F17.200 Nicotine dependence, unspecified, uncomplicated
CPT/HCPCS: 36415; 71045; 80053; 80061; 81001; 82140; 83690; 83880; 84484; 85025; 87040; 93005; 93010; 96361; 96365; 96366; 96367; 99284; J2543; J7030; J7040; J3370

== ENCOUNTER 2017-11-07 14:32 | Emergency (ER) | payer MEDICAID ==
--- NOTE | 2017-11-07 15:35 | Emergency Department Report ---
ED CPR HPI - General Chief Complaint: Cardiac Arrest/CPR Stated Complaint: CARDIAC ARREST Time Seen by Provider: 11/07/17 15:03 Source: EMS (verbal report received from EMS. ems notes not available at time of chart dictation) Mode of arrival: Stretcher Limitations: Altered Mental Status, Other (patient arrives intubated, not responsive, receiving chest compressions) - History of Present Illness Initial Comments: This is a 32-year-old gentleman who is not known to this provider previously. He is brought to the hospital by EMS as an out of hospital cardiac arrest. As per verbal report from EMS, upon arrival to the emergency room, the patient has been pulseless for 45 minutes. His initial presenting rhythm was pulseless electrical activity. EMS intubated the patient, gave high quality CPR, 3 rounds of epinephrine, defibrillated the patient twice, gave 300 mg of amiodarone; please see the EMS record for the full details of their care prehospital. EMS also indicates that they got a report that the patient had a 5 day alcohol binge prior to arrival. Upon arrival to the ER, the patient is pulseless. He is receiving high quality CPR. The pupils are fixed and dilated. He has no signs of higher cortical function. He continues to receive CPR. He gets standard ACLS medications. Unfortunately, pulses cannot be obtained. Resuscitation efforts are terminated. The family/mother is subsequently informed. Place: other Initial Findings in the Field: VTACH/VFIB, PEA Treatments Prior to Arrival: intubation, chest compressions, defribrillated shocks #, epinephrine mgs #, amiodarone, calcium - Related Data Home Medications Medication Instructions Recorded Confirmed Last Taken Quetiapine Fumarate [SEROquel XR] 600 mg PO QHS 06/22/16 06/06/17 06/05/17 Colchicine [Colcrys] 0.6 mg PO DAILY 06/06/17 06/06/17 06/05/17 Digoxin [Lanoxin] 0.125 mg PO DAILY 06/06/17 06/06/17 06/05/17 Folic Acid [Folvite] 1 mg PO QDAY 06/06/17 06/06/17 06/05/17 Lisinopril [Zestril] 5 mg PO QDAY 06/06/17 06/06/17 06/05/17 Multivitamin [Multiple Vitamins] 1 each PO DAILY 06/06/17 06/06/17 06/05/17 Spironolactone [Aldactone] 25 mg PO QDAY 06/06/17 06/06/17 06/05/17 Torsemide [Demadex] 40 mg PO DAILY 06/06/17 06/06/17 06/05/17 Venlafaxine HCl [Venlafaxine ER] 150 mg PO QDAY 06/06/17 06/06/17 06/05/17 Zolpidem Tartrate [Ambien CR] 12.5 mg PO QHS 06/06/17 06/06/17 06/05/17 Allergies Allergy/AdvReac Type Severity Reaction Status Date / Time NSAIDS (Non-Steroidal AdvReac Unknown Verified 06/18/16 19:28 Anti-Inflamma ED Review of Systems ROS: Stated complaint: CARDIAC ARREST Other details as noted in HPI Comment: Unobtainable due to pts medical conditions ED Past Medical Hx - Past Medical History Hx Hypertension: Yes Hx Congestive Heart Failure: Yes Hx Diabetes: No Hx Psychiatric Treatment: Yes Hx Asthma: No Hx COPD: No Hx HIV: No Additional medical history: previous suicide attempts - Surgical History Hx Internal Defibrillator: Yes Additional Surgical History: gastric bypass - Social History Smoking Status: Current Every Day Smoker Substance Use Type: Alcohol - Medications Home Medications: Home Medications Medication Instructions Recorded Confirmed Last Taken Type Quetiapine Fumarate [SEROquel XR] 600 mg PO QHS 06/22/16 06/06/17 06/05/17 History Colchicine [Colcrys] 0.6 mg PO DAILY 06/06/17 06/06/17 06/05/17 History Digoxin [Lanoxin] 0.125 mg PO DAILY 06/06/17 06/06/17 06/05/17 History Folic Acid [Folvite] 1 mg PO QDAY 06/06/17 06/06/17 06/05/17 History Lisinopril [Zestril] 5 mg PO QDAY 06/06/17 06/06/17 06/05/17 History Multivitamin [Multiple Vitamins] 1 each PO DAILY 06/06/17 06/06/17 06/05/17 History Spironolactone [Aldactone] 25 mg PO QDAY 06/06/17 06/06/17 06/05/17 History Torsemide [Demadex] 40 mg PO DAILY 06/06/17 06/06/17 06/05/17 History Venlafaxine HCl [Venlafaxine ER] 150 mg PO QDAY 06/06/17 06/06/17 06/05/17 History Zolpidem Tartrate [Ambien CR] 12.5 mg PO QHS 06/06/17 06/06/17 06/05/17 History ED Physical Exam - General Limitations: Other (intubated, GCS of 3) General appearance: other (patient is very pale.) - Head Head exam: Present: normocephalic - Eye Eye exam: Present: other (pupils are 4 mm and do not react to light) - ENT ENT exam: Present: other (endotracheal tube is noted in the oropharynx) - Neck Neck exam: Present: normal inspection - Respiratory Respiratory exam: Absent: normal lung sounds bilaterally (no breath sounds unless bag valve mask ventilation is applied to the endotracheal tube) - Cardiovascular Cardiovascular Exam: Present: other (the patient is pulseless). Absent: regular rate - GI/Abdominal GI/Abdominal exam: Present: soft - exam: Present: normal inspection - Extremities Exam Extremities exam: Present: normal inspection, other (there is an IO in the right lower extremity) - Back Exam Back exam: Present: normal inspection - Neurological Exam Neurological exam: Present: other (intubated, GCS of 3) - Psychiatric Psychiatric exam: Present: other (nonverbal) - Skin Skin exam: Present: pallor ED Medical Decision Making - Medical Decision Making Differential diagnosis, including but not limited to: Cardiac arrest, intracranial hemorrhage, pulmonary embolus Critical care attestation.: If time is entered above; I have spent that time in minutes in the direct care of this critically ill patient, excluding procedure time. ED Disposition Clinical Impression: Cardiac arrest Disposition: [id number] Is pt being admited?: No Does the pt Need Aspirin: No Condition: Undetermined
== END 2017-11-07 23:00 ==
LOC: ED 14:32
DX: I46.9 Cardiac arrest, cause unspecified (principal); I11.0 Hypertensive heart disease with heart failure; F17.200 Nicotine dependence, unspecified, uncomplicated; Z98.84 Bariatric surgery status
CPT/HCPCS: 92950